=== PATIENT | female | born 1945 | race Caucasian/White ===

== ENCOUNTER → 2019-06-11 16:11 | Outpatient (CLI) | payer BC, SELFPAY ==
--- NOTE | ~2019-06-11 | CT_ITS ---
EXAMINATION: CT sinus wo con DATE: 06/11/2019 16:30 INDICATION: Frequent sinus infections, chronic sinusitis. TECHNIQUE: Computed tomography (CT) of the paranasal sinuses was performed without contrast. Iterativ e reconstruction technique was employed. Exam dose: 265.85 mGy-cm total exam DLP. COMPARISON: 05/27/2016 CT sinuses FINDINGS: Nearly midline nasal septum. Intralamellar cell of right middle nasal turbinate. The nasal turbinate are moderately prominent and relatively symmetric in size. The ostiomeatal units are patent bilaterally. Normal development and aeration of the paranasal sinuses and mastoid air cells. IMPRESSION: Interlamellar cell of right middle nasal turbinate; relatively symmetric prominence of t he nasal turbinates Patent paranasal sinuses, ostiomeatal units and mastoid air cells Reviewed, dictated and finalized at [facility]. Reviewed, dictated and finalized at location B. IMPRESSION: Interlamellar cell of right middle nasal turbinate; relatively sym metric prominence of the nasal turbinates Patent paranasal sinuses, ostiomeatal units and mastoid air cells
== END ==
PROVIDERS: PCP Internal Medicine; Visit Provider Internal Medicine
DX: J32.9 Chronic sinusitis, unspecified (principal)
CPT/HCPCS: 70486

== ENCOUNTER 2019-08-23 08:54 | Outpatient (CLI) | payer BC, SELFPAY ==
--- NOTE | 2019-08-23 08:56 | ECG_ITS ---
Measurements Intervals [place] Rate: 82 P: 40 CO: 199 QRS: 4 QRSD: 81 T: 60 QT: 366 QTc: 430 Interpretive Statements SINUS RHYTHM VENTRICULAR PREMATURE COMPLEXES LEFT VENTRICULAR HYPERTROPHY WITH ST-T CHANGE BASELINE ARTIFACT- I, II, III, AVR, AVL, AVF BORDERLINE ECG Electronically Signed On 08-23-2019 9:27:47 CDT by Priyank Evangelista D.O.
[2019-08-23 09:36] LABS: Blood Urea Nitrogen 12 mg/dL (7-17); Calcium 9.5 mg/dL (8.4-10.2); Carbon Dioxide 28 mmol/L (22-30); Chloride 102 mmol/L (98-107); Estimated Glomerular Filt Rate > 60; Glucose 106 mg/dL (65-105); Potassium 3.7 mmol/L (3.4-5.0); Sodium 138 mmol/L (137-145)
== END 2019-08-23 08:55 | disposition home or self-care (01) ==
PROVIDERS: Anesthesiology; PCP Internal Medicine; Visit Provider Orthopaedic Surgery
DX: I10 Essential (primary) hypertension (principal); E11.9 Type 2 diabetes mellitus without complications; R94.31 Abnormal electrocardiogram [ECG] [EKG]
CPT/HCPCS: 36415; 80048; 93005

== ENCOUNTER 2019-08-30 | Outpatient (CLI) | payer BC, SELFPAY ==
[2019-08-30 17:25] LABS: SARS-CoV-2 RNA PCR Negative
== END 2019-08-30 00:01 | disposition home or self-care (01) ==
LOC: ANHCOVIDDT 00:01
PROVIDERS: PCP Internal Medicine; Visit Provider Orthopaedic Surgery
DX: Z01.812 Encounter for preprocedural laboratory examination (principal); Z20.828 Contact with and (suspected) exposure to other viral communicable diseases
CPT/HCPCS: 87635; C9803; U0003

== ENCOUNTER 2019-09-02 00:34 | Day surgery (SDC) | payer BC, SELFPAY ==
[2019-06-13 15:07] VITALS: BMI 32.5
[2019-08-21 15:48] VITALS: BMI 30.5
--- NOTE | 2019-08-21 15:56 | PC.NURSE ---
PT STATES NO CHANGE IN HEALTH HX SINCE LAST INTERVIEW ON 06/13/19
[2019-09-02] VITALS (7 sets, daily range): BP systolic 131–151; BP diastolic 63–78; PULSE 76–90; RESP 14–20; TEMP 36.3–36.5; O2SAT 96–99
--- NOTE | 2019-09-02 08:11 | WPDANESEPPF ---
Anes - Initial Pre Proc Eval Procedure: Operation Date: 09/02/19 11:00 Proposed Procedures p Right Carpal Tunnel Release - Ulisses Morales MD Date/Time: 09/02/19 08:11 Surgeon: Ulisses Morales MD Pre Op Diagnosis: Right Carpal Tunnel Syndrome Patient Data Age: 74 Gender: F Height: 1.63 m Weight: 80.75 kg Allergies Allergy/AdvReac Type Severity Reaction Status Date / Time clarithromycin Allergy Unknown Itching Verified 08/21/19 14:50 iodine Allergy Unknown THROAT Verified 08/21/19 15:46 SWELLING,FACIAL SWELLING levofloxacin Allergy Unknown Nausea and Verified 08/21/19 14:50 Vomiting Macrolide Antibiotics Allergy Unknown Nausea and Verified 08/21/19 14:50 Vomiting phenazopyridine Allergy Unknown Rash Verified 08/21/19 14:50 Contrast Media Allergy Unknown FACIAL Uncoded 08/21/19 14:50 SWELLING, DIFFICULTY BREATHING Home Medications Medication Instructions Recorded Confirmed Type Opal-D 24 Hour 1 tablet PO QAM PRN 01/15/19 08/21/19 History Janumet 1 tablet PO DAILY 01/15/19 08/21/19 History Multi For Her 1 tab-cap PO DAILY 01/15/19 08/21/19 History acetaminophen [Tylenol] 500 mg PO ONCE PRN 01/15/19 08/21/19 History amlodipine [Norvasc] 5 mg PO DAILY 01/15/19 08/21/19 History carvedilol [Coreg] 12.5 mg PO BID 01/15/19 08/21/19 History famotidine 20 mg PO DAILY 01/15/19 08/21/19 History furosemide [Lasix] 20 mg PO DAILY 01/15/19 08/21/19 History glucosamine-chondroitin [Osteo 1 tablet PO DAILY 01/15/19 08/21/19 History Bi-Flex] levothyroxine 100 mcg PO DAILY 01/15/19 08/21/19 History niacin 500 mg PO DAILY 01/15/19 08/21/19 History omega 1-eda-zlb-fish oil [Fish Oil] 2 cap PO DAILY 01/15/19 08/21/19 History potassium chloride [K-Tab] 20 meq PO DAILY 01/15/19 08/21/19 History rosuvastatin [Crestor] 2.5 mg PO QMWF 01/15/19 08/21/19 History vitamin B complex 1 cap PO DAILY 01/15/19 08/21/19 History vitamin E 400 unit PO DAILY 01/15/19 08/21/19 History acyclovir 200 mg capsule 200 mg PO DAILY #120 cap 03/06/19 08/21/19 Rx olmesartan 40 mg tablet 40 mg PO DAILY #90 tablet 03/19/19 08/21/19 Rx fexofenadine 60 mg-pseudoephedrine 1 tablet PO Q12H PRN 05/22/19 08/21/19 History ER 120 mg tablet,ext.release,12 hr cefdinir 300 mg capsule 300 mg PO Q12H #20 cap 06/12/19 08/21/19 Rx cholestyramine-aspartame 4 gram 4 g PO DAILY #231 gm 06/26/19 08/21/19 Rx oral powder Patient hx anesthesia problems: none Family hx anesthesia problems: none PMFSH Social History Social History Social History: Mrs. Hagen is and lives in [place], [place]. Her primary care provider is Dr. Alexander Christian. 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 She designates her son, King, as her surrogate decision maker and she wishes to be a full code. She has 5 children. She is a lifelong nonsmoker and denies alcohol and drug abuse. Smoking status: Never smoker Alcohol intake: never Additional living arrangements comments: Son Beatriz Hopper Final PreProcedure Day of Procedure 09/02/19 08:11 Patient weight: obese Heart: regular rate and rhythm Lungs: clear to auscultation and normal air movement Airway: Mallampati scale class II Neurological: alert and oriented Last oral intake: >/= 8 hours ASA classification: III Emergent: no Anesthetic plan: proceed Anesthesia type and monitoring: general GIVS and LMA Informed Consent: The patient's anesthetic plan and its attendant risks and benefits were discussed with the patient/family/POA. Questions were solicited and answers provided to the satisfaction of the patient/family/POA.
[2019-09-02] MEDS: LACTATED RINGERS 1,000 ML 30 ML IV CONT (09:30)
[2019-09-02 09:40] LABS: Glucose Point of Care 103 (65-105)
--- NOTE | 2019-09-02 10:25 | WPDHPUPDATE1 ---
History and Physical Update Update Date/Time: 09/02/19 10:25 History and Physical has been reviewed, including an updated exam of the patient. There are NO changes in the patient's condition. Risks, benefits, and alternatives have been discussed and questions answered. Patient agrees to proceed with procedure.
[2019-09-02] MEDS: ceFAZolin 2 GM/D5W 50 ML 2 GM/50 ML BAG IVPB (11:06)
[2019-09-02] MEDS: BUPIVACAINE/EPINEPHRINE 0.25% 50 ML VIAL INFILTRATE (11:38)
--- NOTE | 2019-09-02 11:55 | P.OP_ITS ---
Procedure Note - Detailed Date of procedure: 09/02/19 Pre-op diagnosis: Right Carpal Tunnel Syndrome Post-op diagnosis: same Procedure performed: Right carpal tunnel release Description of procedure: The patient was identified and proper side identified. After being taken to the operating room and transferred to the OR table, a nonsterile tourniquet was placed high on the right upper extremity, which was prepped and draped in the usual sterile fashion. After IV sedation was administered, the subcutaneous tissue in the area of the incision was infiltrated with several cc of 0.25% Marcaine and epinephrine solution. The extremity was exsanguinated and tourniquet inflated to 250 mmHg remaining up for approximately four minutes. A longitudinal incision was over the ulnar aspect of the transverse carpal ligament. Subcutaneous tissue was bluntly dissected down to the ligament, which was identified and then transected longitudinally in line with the incision releasing the contents of the carpal canal. The tourniquet was released. Hemostasis was carried out with bipolar electrocautery. The median nerve had appropriate blush with reperfusion. The wound was irrigated with sterile saline solution. Skin edges were reapproximat ed with four 0 nylon suture and a sterile dressing was applied. A well-padded volar wrist splint was fashioned with the wrist in a neutral position. Anesthesia: GLMA Surgeon: Ulisses Morales MD Estimated blood loss (mL): 2 Tourniquet time (min): 4 Drains: No Packing: No Pathology: none sent Complications: No immediate complications Condition: stable Disposition: PACU
[2019-09-02 12:43] LABS: Glucose Point of Care 82 (65-105)
== END 2019-09-02 13:30 | disposition home or self-care (01) ==
PROVIDERS: PCP Internal Medicine; Visit Provider Orthopaedic Surgery
PROC: (CPT 64721; principal; 2019-09-02 11:00)
DX: G56.01 Carpal tunnel syndrome, right upper limb (principal); E66.9 Obesity, unspecified; Z68.31 Body mass index [BMI] 31.0-31.9, adult; I10 Essential (primary) hypertension; E11.9 Type 2 diabetes mellitus without complications; K21.9 Gastro-esophageal reflux disease without esophagitis; E78.5 Hyperlipidemia, unspecified; E03.9 Hypothyroidism, unspecified
CPT/HCPCS: 64721; J0690; J1100; J2405; J2704; J3010; J7120

== ENCOUNTER → 2019-11-26 15:09 | Outpatient (REF) | payer BC, SELFPAY | LOC: ANHLAB 15:09 | PROVIDERS: PCP Internal Medicine; Visit Provider Nurse Practitioner | DX: C43.72 Malignant melanoma of left lower limb, including hip (principal) | CPT/HCPCS: 88305; 88342 ==

== ENCOUNTER 2019-12-10 01:51 | Outpatient (CLI) | payer BC, SELFPAY ==
[2019-12-10 17:02] LABS: SARS-CoV-2 RNA PCR Negative
== END 2019-12-10 01:52 | disposition home or self-care (01) ==
LOC: ANHCOVIDDT 01:51
PROVIDERS: PCP Internal Medicine; Visit Provider Surgery Plastic and Reconstructive Surgery
DX: Z01.812 Encounter for preprocedural laboratory examination (principal); Z20.828 Contact with and (suspected) exposure to other viral communicable diseases
CPT/HCPCS: 87635; C9803; U0003

== ENCOUNTER 2019-12-11 08:47 | Outpatient (CLI) | payer BC, SELFPAY ==
[2019-12-11 09:13] LABS: Anion Gap 10 mmol/L (8-16); Blood Urea Nitrogen 14 mg/dL (7-17); Calcium 9.4 mg/dL (8.4-10.2); Carbon Dioxide 26 mmol/L (22-30); Chloride 102 mmol/L (98-107); Estimated Glomerular Filt Rate > 60; Glucose 113 mg/dL (65-105); Potassium 3.8 mmol/L (3.4-5.0); Sodium 138 mmol/L (137-145)
== END 2019-12-11 08:48 | disposition home or self-care (01) ==
PROVIDERS: Anesthesiology; PCP Internal Medicine; Visit Provider Surgery Plastic and Reconstructive Surgery
DX: E11.9 Type 2 diabetes mellitus without complications (principal)
CPT/HCPCS: 36415; 80048

== ENCOUNTER 2019-12-12 00:26 | Day surgery (SDC) | payer BC, SELFPAY ==
[2019-12-10 12:52] VITALS: BMI 31.1
--- NOTE | ~2019-12-12 | NM_ITS ---
EXAMINATION: NM sentinel node w imaging DATE: 12/12/2019 08:13 INDICATION: Left foot melanoma. TECHNIQUE: 0.516 mCi Tc-99m filtered sulfur colloid was injected in two aliquots along the dorsal and plantar margins of the lesion which is seen at the medial side of the left foot. Scintigraphic image s of the pelvis and and upper thighs was obtained for marking. IMPRESSION: 1. Left foot sentinel lymph node radiopharmaceutical injection with uptake at a single sentinel node at the left groin. Reviewed, dictated and finalized at location A.
[2019-12-12] MEDS: LACTATED RINGERS 1,000 ML 30 ML IV CONT (06:34)
[2019-12-12 06:40] VITALS: BP 121/68; PULSE 85; RESP 18; TEMP 36.8; O2SAT 98
[2019-12-12 06:56] LABS: Glucose Point of Care 126 (65-105)
--- NOTE | 2019-12-12 07:35 | SUR.PREOP ---
PT TO NUCLEAR MEDICINE PER WHEELCHAIR.
--- NOTE | 2019-12-12 07:54 | WPDHPUPDATE1 ---
History and Physical Update Update Date/Time: 12/12/19 07:54 History and Physical has been reviewed, including an updated exam of the patient. There are NO changes in the patient's condition. Risks, benefits, and alternatives have been discussed and questions answered. Patient agrees to proceed with procedure.
--- NOTE | 2019-12-12 08:02 | WPDANESEPPF ---
Anes - Initial Pre Proc Eval Procedure: Operation Date: 12/12/19 08:30 Proposed Procedures p Wide Excision Melanoma Left Medial Foot With Split Thickness Skin Graft - Neymar Lopez MD s Vivian Lymph Node Biopsy - Neymar Lopez MD Date/Time: 12/12/19 08:02 Surgeon: Neymar Lopez MD Pre Op Diagnosis: Melanoma Left Foot Patient Data Age: 74 Gender: F Height: 5 ft 4 in Weight: 82 kg Allergies Allergy/AdvReac Type Severity Reaction Status Date / Time Iodinated Contrast Media Allergy Severe Swelling Verified 12/12/19 07:57 clarithromycin Allergy Unknown Itching Verified 12/10/19 12:32 iodine Allergy Unknown THROAT Verified 12/10/19 12:32 SWELLING,FACIAL SWELLING levofloxacin Allergy Unknown Nausea and Verified 12/10/19 12:32 Vomiting Macrolide Antibiotics Allergy Unknown Nausea and Verified 12/10/19 12:32 Vomiting phenazopyridine Allergy Unknown Rash Verified 12/10/19 12:32 Contrast Media Allergy Unknown FACIAL Uncoded 12/10/19 12:32 SWELLING, DIFFICULTY BREATHING Home Medications Medication Instructions Recorded Confirmed Type Multi For Her 1 tab-cap PO DAILY 01/15/19 12/12/19 History acetaminophen [Tylenol] 500 mg PO ONCE PRN 01/15/19 12/12/19 History famotidine 20 mg PO DAILY 01/15/19 12/12/19 History furosemide [Lasix] 20 mg PO DAILY 01/15/19 12/12/19 History glucosamine-chondroitin [Osteo 1 tablet PO DAILY 01/15/19 12/12/19 History Bi-Flex] levothyroxine 100 mcg PO DAILY 01/15/19 12/12/19 History niacin 500 mg PO DAILY 01/15/19 12/12/19 History omega 5-dvj-xlh-fish oil [Fish Oil] 2 cap PO DAILY 01/15/19 12/12/19 History vitamin B complex 1 cap PO DAILY 01/15/19 12/12/19 History vitamin E 400 unit PO DAILY 01/15/19 12/12/19 History acyclovir 200 mg capsule 200 mg PO DAILY #120 cap 03/06/19 12/12/19 Rx olmesartan 40 mg tablet 40 mg PO DAILY #90 tablet 03/19/19 12/12/19 Rx fexofenadine 60 mg-pseudoephedrine 1 tablet PO Q12H PRN 05/22/19 12/12/19 History ER 120 mg tablet,ext.release,12 hr sitagliptin 50 mg-metformin 500 mg 1 tablet PO DAILY #90 tablet 09/13/19 12/12/19 Rx tablet rosuvastatin 5 mg tablet 5 mg PO DAILY #90 tablet 10/17/19 12/12/19 Rx amlodipine 10 mg tablet 5 mg PO DAILY #45 tablet 10/25/19 12/12/19 Rx cholestyramine-aspartame 4 gram 4 g PO DAILY #360 gm 11/11/19 12/12/19 Rx oral powder carvedilol 12.5 mg tablet 12.5 mg PO BID #180 tablet 12/02/19 12/12/19 Rx potassium chloride 20 mEq 20 meq PO DAILY #90 tablet 12/03/19 12/12/19 Rx tablet,extended release Laboratory Tests 12/12/19 06:53 POC Capillary Glucose 126 mg/dl H mg/dl (65-105) Patient hx anesthesia problems: none Family hx anesthesia problems: none PMFSH Past Medical History Medical History Aftercare following surgery (02/05/19) Benign essential hypertension Bilateral hearing loss BMI 31.0-31.9,adult Chronic sinus complaints Colon cancer screening CTS (carpal tunnel syndrome) DM type 2 (diabetes mellitus, type 2) 05/16/19 a1c 5.5 DVT (deep venous thrombosis) In her 20s. Attributed to oral contraceptive use. Elevated homocysteine Encounter for routine adult health examination without abnormal findings Ganglion cyst left wrist volar GERD (gastroesophageal reflux disease) GERD (gastroesophageal reflux disease) History of diverticulitis History of shingles Hyperlipidemia Hypertension Hypothyroidism Insulin resistance Hemoglobin A1c was 5.7 in June 2018. 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 Skin lesion Vitamin D deficiency Surgical History Surgical History History of appendectomy History of tonsillectomy History of total replacement of left shoulder joint Presence of left artificial shoulder joint (02/05/19) Right carpal tunnel syndrome Surgery [facility]
--- NOTE | 2019-12-12 08:08 | PM.PROC ---
Procedure Note - Detailed Date of procedure: 12/12/19 Pre-op diagnosis: Melanoma Left Foot Post-op diagnosis: same Procedure performed: 1. Wide excision melanoma left medial foot 7cm 2. Left inguinal sentinal lymph node excisional biopsy 3. FTSG left medial foot (harvested left thigh) 7x7cm (49cm2) Description of procedure: Risks, benefits, alternatives were discussed again today in extensive detail. I want her to be realistic about the risks involved as well as expectations. Made sure answered all of her questions to her satisfaction and consent obtained. She was marked in the preoperative holding area with her verification. She had been to radiology with radionucleotide injection. The sentinel node was identified left inguinal. She was taken to the operating room placed supine on the operating room table. Anesthesia was provided by anesthesiology and prepped and draped standard sterile fashion. 1% lidocaine with epinephrine was used anesthetize locally at the planned sentinel node site. I used the counter to identify the location. a 15 blade used to make an incision over this. I continued dissection until the node was identified and this was removed. The node was sent to pathology. The background was less than 1%. No evidence of neurovascular injury. I closed with 2-0 Vicryl followed by 3-0 Monocryl in a running subcuticular 4-0 Monocryl with tissue glue. I marked out greater than 2 cm margins around the melanoma site. 1% lidocaine and 0.25% Marcaine with epinephrine was used anesthetize locally. A 15 blade used to make an incision and dissection was continued down and elevated just above the fascia. This was sent to pathology. On the left side I marked out the graft site. 1% lidocaine and 0.25% Marcaine with epinephrine was used anesthetize locally. Chapo dermatome was used to harvest the graft at 12 1 thousands of an inch. I placed an occlusive dressing at the site. The skin graft was meshed at a 1.5-1 ratio. It was stapled into place over the left medial foot. Xeroform and a tie-over bolster using wet cotton were used. Dressings were placed. Awoke and taken the PACU without difficulty. All instrument sponge counts were correct at the end the case. Anesthesia: GLMA Surgeon: Neymar Lopez MD Estimated blood loss (mL): 5 Drains: No Packing: Yes Pathology: yes Complications: No immediate complications Condition: stable Disposition: PACU
[2019-12-12] MEDS: ceFAZolin 2 GM/D5W 50 ML 2 GM/50 ML BAG IVPB (08:21)
[2019-12-12 09:50] VITALS: BP 140/77; PULSE 91; RESP 14; TEMP 36.6; O2SAT 100
[2019-12-12 09:55] LABS: Glucose Point of Care 114 (65-105)
[2019-12-12 10:07] VITALS: BP 130/74; PULSE 82; RESP 12; O2SAT 97
[2019-12-12 10:20] VITALS: BP 109/92; PULSE 83; RESP 12; O2SAT 100
[2019-12-12 10:40] VITALS: BP 148/73; PULSE 86
[2019-12-12 11:10] VITALS: BP 138/70; PULSE 80
--- NOTE | 2019-12-12 11:15 | SUR.OPER ---
EBL:20cc
== END 2019-12-12 11:38 | disposition home or self-care (01) ==
PROVIDERS: PCP Internal Medicine; Visit Provider Surgery Plastic and Reconstructive Surgery
PROC: (CPT 11626; principal; 2019-12-12 08:30)
PROC: (CPT 11626; 2019-12-12 08:30)
DX: C43.72 Malignant melanoma of left lower limb, including hip (principal); I10 Essential (primary) hypertension; E78.5 Hyperlipidemia, unspecified; K21.9 Gastro-esophageal reflux disease without esophagitis; E11.9 Type 2 diabetes mellitus without complications; Z86.718 Personal history of other venous thrombosis and embolism; E03.9 Hypothyroidism, unspecified; E55.9 Vitamin D deficiency, unspecified; Z79.84 Long term (current) use of oral hypoglycemic drugs; E66.9 Obesity, unspecified; Z68.31 Body mass index [BMI] 31.0-31.9, adult
CPT/HCPCS: 11626; 15240; 15241 ×2; 38531; 78195; 88305; 88307; 88342; A9520; J0690; J1100; J2250; J2405; J2704; J3010; J7120

== ENCOUNTER 2020-01-01 11:25 | Outpatient (CLI) | payer BC, SELFPAY ==
[2020-01-01 11:38] LABS: Basophils Percent Auto 0.3 % (0.2-1.2); Eosinophils Absolute Auto 0.2 K/mm3 (0-0.3); Eosinophils Percent Auto 1.7 % (0-4.4); Hematocrit 36.3 % (37.0-47.0); Immature Granulocyte Absolute 0.02 K/mm3 (0.00-0.031); Immature Granulocyte Percent A 0.2 % (0-0.5); Lymphocytes Absolute Auto 2.26 K/mm3 (0.9-3.2); Lymphocytes Percent Auto 25.4 % (18.3-44.2); Mean Corpuscular HGB Conc 33.1 g/dl (32-36); Mean Corpuscular Hemoglobin 31.7 pg (26-34); Mean Corpuscular Volume 95.8 fl (80-100); Mean Platelet Volume 10.1 fl (7.4-10.4); Monocytes Percent Auto 11.5 % (2.6-8.5); Neutrophils Absolute Auto 5.4 K/mm3 (1.3-6.7); Neutrophils Percent Auto 60.9 % (45.5-73.1); Platelet Count Result 225 k/mm3 (150-375); Red Blood Count 3.79 M/mm3 (4.2-5.4); Red Cell Distribution Width 12.5 % (11.5-14.5); White Blood Count 8.9 K/mm3 (4.5-10.0)
[2020-01-01 13:46] LABS: Alanine Aminotransferase 16 U/L (4-35); Albumin Level 4.4 g/dL (3.5-5.1); Alkaline Phosphatase 75 U/L (38-126); Anion Gap 10 mmol/L (8-16); Aspartate Amino Transferase 23 U/L (14-36); Bilirubin,Total 0.4 mg/dL (0.2-1.3); Blood Urea Nitrogen 13 mg/dL (7-17); Calcium 9.9 mg/dL (8.4-10.2); Carbon Dioxide 28 mmol/L (22-30); Chloride 103 mmol/L (98-107); Estimated Glomerular Filt Rate > 60; Glucose 104 mg/dL (65-105); Lactate Dehydrogenase 359 U/L (313-618); Potassium 4.1 mmol/L (3.4-5.0); Sodium 141 mmol/L (137-145)
== END 2020-01-01 11:26 | disposition home or self-care (01) ==
LOC: ANHLAB 11:26
PROVIDERS: PCP Internal Medicine; Visit Provider Internal Medicine Hematology & Oncology
DX: C43.71 Malignant melanoma of right lower limb, including hip (principal)
CPT/HCPCS: 36415; 80053; 83615; 85025

== ENCOUNTER 2020-03-16 07:47 | Outpatient (RCR) | payer BC, SELFPAY ==
[2020-01-06 13:23] VITALS: BMI 31.7
--- NOTE | 2020-01-27 12:55 | P.PN_ITS ---
Progress Note: A&P Assessment and Plan (1) Melanoma of foot: Code(s): C43.70 - Malignant melanoma of unspecified lower limb, including hip Status: Acute Assessment and Plan: Left medial foot is doing well. Continues to make progress. Continue dressing changes. Follow-up. Overall doing well. She continues to make improvement. She would like to continue with dressing changes. Wound care will treat with silver nitrate today. I will see her back and check her progress. Call with any questions or concerns. (2) Vitamin D deficiency: Code(s): E55.9 - Vitamin D deficiency, unspecified Status: Acute (3) Benign essential hypertension: Code(s): I10 - Essential (primary) hypertension Status: Acute (4) Insulin resistance: Code(s): E88.81 - Metabolic syndrome Status: Chronic Review of Systems Review of Systems: Narrative: Edema left lower extremity. Mild. No calf tenderness. All systems reviewed & are unremarkable except as noted in HPI and below Exam Narrative: Exam Narrative: Mild left lower extremity edema. No calf tenderness. Negative Homans. Her left medial ankle is healing with some hypergranulation tissue. Continues to decrease in size. No signs of infection. No hematoma. No seroma. Const: General: comfortable, no acute distress, alert and awake; No acute distress Orientation/consciousness: oriented to person HENMT: Head: normal to inspection Ears: external ears normal General nose exam: Normal external nose present Face and sinus: normal facial exam Eyes: General: appearance normal, both eyes and all related structures Periorbital: periorbital findings normal Eyelids: eyelids normal Conjunctivae: conjunctivae normal Neck: Neck: normal visual inspection Chest: Chest palpation & inspection: normal inspection of the chest Resp: Effort & Inspection: normal respiratory effort and able to speak in complete sentences GI: Inspection: normal to inspection Neuro: General: oriented to person Psych: Appearance: grossly normal Mental Status: mental status grossly normal Objective Data Meds/Results Medications: Active Medications Generic Name Dose Route Start Last Admin Trade Name Freq PRN Reason Stop Dose Admin Mupirocin 1 applic 01/20/20 12:05 Mupirocin 2% Oint 22 Gm Tube TOPICAL 04/21/20 23:59 PRN PRN Wound Care Silver Nitrate 1 applic 01/06/20 11:51 Silvergel TOPICAL 04/07/20 23:55 PRN PRN Wound Care Wound Care/Dressing Products 1 patch 01/06/20 11:52 Mepilex Transfer Drsg 6x8 TOPICAL 04/07/20 23:55 PRN PRN Wound Care Subjective Date/time seen: 01/27/20 12:55 She is here today in follow-up of left medial foot melanoma excision and split- thickness skin graft. She states her lymph node biopsy site is healing well. She believes she had a little bit of infection that was treated with antibiotics by her primary care. Subsequently resolved in doing great. Left medial feels better. No fevers or chills. No nausea vomiting. No shortness of breath. No chest pain. She has been treated with silver nitrate tissue.
== END 2020-04-05 23:59 | disposition home or self-care (01) ==
LOC: ANHWOC 07:47
PROVIDERS: PCP Internal Medicine; Visit Provider Surgery Plastic and Reconstructive Surgery
DX: T86.821 Skin graft (allograft) (autograft) failure (principal)
CPT/HCPCS: 99212; A9270; G0463

== ENCOUNTER → 2020-03-17 13:36 | Outpatient (REF) | payer BC, SELFPAY | LOC: ANHLAB 13:36 | PROVIDERS: PCP Internal Medicine; Visit Provider Nurse Practitioner | DX: C44.319 Basal cell carcinoma of skin of other parts of face (principal) | CPT/HCPCS: 88305 ==

== ENCOUNTER 2020-03-31 08:04 | Outpatient (CLI) | payer BC, SELFPAY ==
[2020-03-31 08:28] LABS: Basophils Absolute Auto 0.1 K/mm3 (0.0-0.1); Basophils Percent Auto 0.8 % (0.2-1.2); Eosinophils Absolute Auto 0.2 K/mm3 (0-0.3); Eosinophils Percent Auto 3.5 % (0-4.4); Hematocrit 37.4 % (37.0-47.0); Hemoglobin 12.2 g/dL (12.0-15.0); Immature Granulocyte Absolute 0.02 K/mm3 (0.00-0.031); Immature Granulocyte Percent A 0.3 % (0-0.5); Lymphocytes Percent Auto 27.7 % (18.3-44.2); Mean Corpuscular HGB Conc 32.6 g/dl (32-36); Mean Corpuscular Hemoglobin 31.1 pg (26-34); Mean Corpuscular Volume 95.4 fl (80-100); Mean Platelet Volume 9.9 fl (7.4-10.4); Monocytes Absolute Auto 0.8 K/mm3 (0.1-0.6); Monocytes Percent Auto 12.2 % (2.6-8.5); Neutrophils Absolute Auto 3.6 K/mm3 (1.3-6.7); Neutrophils Percent Auto 55.5 % (45.5-73.1); Platelet Count Result 197 k/mm3 (150-375); Red Blood Count 3.92 M/mm3 (4.2-5.4); Red Cell Distribution Width 12.8 % (11.5-14.5); White Blood Count 6.5 K/mm3 (4.5-10.0)
[2020-03-31 13:12] LABS: Alanine Aminotransferase 19 U/L (4-35); Albumin Level 4.3 g/dL (3.5-5.1); Alkaline Phosphatase 73 U/L (38-126); Anion Gap 11 mmol/L (8-16); Aspartate Amino Transferase 26 U/L (14-36); Bilirubin,Total 0.3 mg/dL (0.2-1.3); Blood Urea Nitrogen 16 mg/dL (7-17); Calcium 9.5 mg/dL (8.4-10.2); Carbon Dioxide 27 mmol/L (22-30); Chloride 101 mmol/L (98-107); Estimated Glomerular Filt Rate > 60; Glucose 111 mg/dL (65-105); Lactate Dehydrogenase 359 U/L (313-618); Sodium 139 mmol/L (137-145)
== END 2020-03-31 08:05 | disposition home or self-care (01) ==
LOC: ANHLAB 08:05
PROVIDERS: PCP Internal Medicine; Visit Provider Internal Medicine Hematology & Oncology
DX: C43.71 Malignant melanoma of right lower limb, including hip (principal)
CPT/HCPCS: 36415; 80053; 83615; 85025

== ENCOUNTER → 2020-03-31 16:49 | Outpatient (CLI) | payer BC, SELFPAY ==
--- NOTE | ~2020-03-31 | MM_ITS ---
EXAMINATION: MM screening caleb BI w lilian HISTORY: Screening TECHNIQUE: Craniocaudal and mediolateral oblique 3-D tomosynthesis images were obtained and synthetic 2-D images were generated. CAD analysis was submitted and interpreted. COMPARISON: Comparison to multiple prior studies sequentially, with oldest reviewed study dated 07/01. BREAST PARENCHYMAL COMPOSITION: There are scattered areas of fibroglandular density. FINDINGS: There is no evidence of suspicious mass, calcification, or architectural distortion to sugg est malignancy in either breast. There has been no suspicious interval change. IMPRESSION: 1. No mammographic evidence of malignancy. 2. Recommend routine screening mammography in one year. BI-RADS Category 1: Negative Reviewed, dictated and finalized at location A. CLERK
== END ==
PROVIDERS: PCP Internal Medicine; Visit Provider Internal Medicine
DX: Z12.31 Encounter for screening mammogram for malignant neoplasm of breast (principal)
CPT/HCPCS: 77063; 77067

== ENCOUNTER 2020-05-04 12:16 | Outpatient (RCR) | payer BC, SELFPAY | END 2020-07-08 14:39 | disposition home or self-care (01) | LOC: ANHWOC 12:16 | PROVIDERS: PCP Internal Medicine; Visit Provider Surgery Plastic and Reconstructive Surgery | DX: Z48.817 Encounter for surgical aftercare following surgery on the skin and subcutaneous tissue (principal); Z94.5 Skin transplant status | CPT/HCPCS: 99212; G0463 ==

== ENCOUNTER → 2020-05-18 09:38 | Outpatient (REF) | payer BC, SELFPAY | LOC: ANHLAB 09:38 | PROVIDERS: PCP Internal Medicine; Visit Provider Nurse Practitioner | DX: C44.319 Basal cell carcinoma of skin of other parts of face (principal) | CPT/HCPCS: 88305; 88331 ==

== ENCOUNTER → 2020-06-19 14:39 | Outpatient (CLI) | payer BC, SELFPAY ==
--- NOTE | ~2020-06-19 | XR_ITS ---
XR chest 2V DATE: 06/19/2020 14:53 INDICATION: Malignant melanoma of skin TECHNIQUE: PA and lateral views COMPARISON: 06/10/2014 AP and lateral chest FINDINGS: Normal heart size. Aortic calcification and mild unfolding. No hilar or mediastinal enlarge ment. No pulmonary infiltrate or consolidation, pleural effusion or pulmonary vascular congestion or pneumo thorax. Left glenohumeral joint replacement. Chronic widening of the right acromioclavicular joint. Diffuse idiopathic skeletal hyperostosis of the thoracic spine. Diffuse osteopenia. IMPRESSION: No active cardiac pulmonary disease Aortic atherosclerosis No significant change since 06/10/2014 Reviewed, dictated and finalized at location A.
== END ==
PROVIDERS: PCP Internal Medicine; Visit Provider Internal Medicine
DX: Z85.820 Personal history of malignant melanoma of skin (principal); I70.0 Atherosclerosis of aorta
CPT/HCPCS: 71046

== ENCOUNTER 2020-09-28 08:22 | Outpatient (CLI) | payer BC, SELFPAY ==
[2020-09-28 08:42] LABS: Basophils Percent Auto 0.5 % (0.2-1.2); Eosinophils Absolute Auto 0.1 K/mm3 (0-0.3); Eosinophils Percent Auto 2.1 % (0-4.4); Hematocrit 38.2 % (37.0-47.0); Hemoglobin 12.3 g/dL (12.0-15.0); Immature Granulocyte Absolute 0.02 K/mm3 (0.00-0.031); Immature Granulocyte Percent A 0.3 % (0-0.5); Lymphocytes Absolute Auto 1.63 K/mm3 (0.9-3.2); Lymphocytes Percent Auto 27.9 % (18.3-44.2); Mean Corpuscular HGB Conc 32.2 g/dl (32-36); Mean Corpuscular Volume 96.2 fl (80-100); Mean Platelet Volume 9.6 fl (7.4-10.4); Monocytes Absolute Auto 0.7 K/mm3 (0.1-0.6); Monocytes Percent Auto 11.1 % (2.6-8.5); Neutrophils Absolute Auto 3.4 K/mm3 (1.3-6.7); Neutrophils Percent Auto 58.1 % (45.5-73.1); Platelet Count Result 187 k/mm3 (150-375); Red Blood Count 3.97 M/mm3 (4.2-5.4); Red Cell Distribution Width 12.3 % (11.5-14.5); White Blood Count 5.9 K/mm3 (4.5-10.0)
[2020-09-28 10:33] LABS: Alanine Aminotransferase 18 U/L (4-35); Albumin Level 4.5 g/dL (3.5-5.1); Alkaline Phosphatase 66 U/L (38-126); Anion Gap 9 mmol/L (8-16); Aspartate Amino Transferase 26 U/L (14-36); Bilirubin,Total 0.3 mg/dL (0.2-1.3); Blood Urea Nitrogen 14 mg/dL (7-17); Calcium 9.9 mg/dL (8.4-10.2); Carbon Dioxide 28 mmol/L (22-30); Chloride 104 mmol/L (98-107); Estimated Glomerular Filt Rate > 60; Glucose 120 mg/dL (65-105); Lactate Dehydrogenase 338 U/L (313-618); Potassium 4.3 mmol/L (3.4-5.0); Sodium 141 mmol/L (137-145)
== END 2020-09-28 08:23 | disposition home or self-care (01) ==
PROVIDERS: PCP Internal Medicine; Visit Provider Internal Medicine Hematology & Oncology
DX: C43.71 Malignant melanoma of right lower limb, including hip (principal)
CPT/HCPCS: 36415; 80053; 83615; 85025

== ENCOUNTER 2020-10-22 01:02 | Day surgery (SDC) | payer BC, SELFPAY ==
[2020-10-19 16:58] VITALS: BMI 31.4
--- NOTE | 2020-10-22 07:17 | WPDHPUPDATE1 ---
History and Physical Update Update Date/Time: 10/22/20 07:17 History and Physical has been reviewed, including an updated exam of the patient. There are NO changes in the patient's condition. Risks, benefits, and alternatives have been discussed and questions answered. Patient agrees to proceed with procedure.
--- NOTE | 2020-10-22 08:06 | ECG_ITS ---
Measurements Intervals [place] Rate: 85 P: 28 AL: 212 QRS: -1 QRSD: 75 T: 59 QT: 356 QTc: 424 Interpretive Statements SINUS RHYTHM WITH FIRST DEGREE AV BLOCK LEFT VENTRICULAR HYPERTROPHY WITH ST-T CHANGE ABNORMAL ECG Electronically Signed On 10-22-2020 11:28:59 CDT by Priyank Evangelista D.O.
[2020-10-22 08:47] VITALS: BP 172/83; PULSE 98; RESP 20; TEMP 36.8; O2SAT 100
[2020-10-22 09:50] LABS: Glucose Point of Care 106 mg/dl (65-105)
[2020-10-22] MEDS: LACTATED RINGERS 1,000 ML 30 ML IV CONT (10:05)
--- NOTE | 2020-10-22 10:09 | WPDANESEPPF ---
Anes - Initial Pre Proc Eval Procedure: Operation Date: 10/22/20 10:30 Proposed Procedures p Left Carpal Tunnel Release - Brendan Zamora MD Date/Time: 10/22/20 10:09 Surgeon: Brendan Zamora MD Pre Op Diagnosis: left carpal tunnel syndrome Patient Data Age: 75 Gender: F Height: 1.63 m Weight: 83.01 kg Allergies Allergy/AdvReac Type Severity Reaction Status Date / Time Iodinated Contrast Media Allergy Severe THROAT/FACIAL Verified 10/22/20 09:23 SWELLING iodine Allergy Severe THROAT/FACIAL Verified 10/22/20 09:23 SWELLING clarithromycin AdvReac Mild Itching Verified 10/22/20 09:23 levofloxacin AdvReac Mild Nausea and Verified 10/22/20 09:23 Vomiting Macrolide Antibiotics AdvReac Mild Nausea and Verified 10/22/20 09:23 Vomiting phenazopyridine AdvReac Mild Rash Verified 10/22/20 09:23 Contrast Media Allergy Unknown FACIAL/THROAT Uncoded 10/22/20 09:23 SWELLING, DIFFICULTY BREATHING Home Medications Medication Instructions Recorded Confirmed Type Multi For Her 1 tab-cap PO DAILY 01/15/19 10/22/20 History acetaminophen [Tylenol] 500 mg PO ONCE PRN 01/15/19 10/22/20 History glucosamine-chondroitin [Osteo 1 tablet PO DAILY 01/15/19 10/22/20 History Bi-Flex] niacin 500 mg PO DAILY 01/15/19 10/22/20 History omega 5-pxz-wkq-fish oil [Fish Oil] 2 cap PO DAILY 01/15/19 10/22/20 History vitamin B complex 1 cap PO DAILY 01/15/19 10/22/20 History vitamin E 400 unit PO DAILY 01/15/19 10/22/20 History fexofenadine 60 mg-pseudoephedrine 1 tablet PO Q12H PRN 05/22/19 10/22/20 History ER 120 mg tablet,ext.release,12 hr potassium chloride 20 mEq 20 meq PO DAILY #90 tablet 12/03/19 10/22/20 Rx tablet,extended release famotidine 40 mg tablet 40 mg PO DAILY #90 tablet 12/23/19 10/22/20 Rx levothyroxine 100 mcg tablet 100 mcg PO DAILY #90 tablet 09/28/20 07/22/21 Rx furosemide 40 mg tablet 20 mg PO DAILY #90 tablet 06/08/20 10/22/20 Rx carvedilol 12.5 mg PO BID 10/19/20 10/22/20 History cholestyramine-aspartame 4 ea PO DAILY 10/19/20 10/22/20 History [Prevalite] olmesartan 40 mg PO DAILY 10/19/20 10/22/20 History rosuvastatin 5 mg PO DAILY 10/19/20 10/22/20 History sitagliptin-metformin [Janumet] 1 tablet PO DAILY 10/19/20 10/22/20 History amlodipine 5 mg PO DAILY 10/22/20 10/22/20 History Laboratory Tests 10/22/20 09:46 POC Capillary Glucose 106 mg/dl H mg/dl (65-105) Patient hx anesthesia problems: none Family hx anesthesia problems: none PMFSH Past Medical History Medical History Aftercare following surgery (02/05/19) Benign essential hypertension Bilateral hearing loss BMI 31.0-31.9,adult Chronic sinus complaints Colon cancer screening CTS (carpal tunnel syndrome) DM type 2 (diabetes mellitus, type 2) 05/16/19 a1c 5.5 DVT (deep venous thrombosis) In her 20s. Attributed to oral contraceptive use. Elevated homocysteine Encounter for routine adult health examination without abnormal findings Ganglion cyst left wrist volar GERD (gastroesophageal reflux disease) GERD (gastroesophageal reflux disease) History of diverticulitis History of shingles Hyperlipidemia Hypertension Hypothyroidism Insulin resistance Hemoglobin A1c was 5.7 in June 2018. 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 Skin lesion Vitamin D deficiency Surgical History Surgical History History of appendectomy History of knee joint replacement History of tonsillectomy History of total replacement of left shoulder joint Presence of left artificial shoulder joint (02/05/19) Right carpal tunnel syndrome Surgery September 2019 Status post cholecystectomy Status post reverse arthroplasty of left shoulder Status post right knee replacement Family History Fam
[2020-10-22] MEDS: KETOROLAC 15 MG/ML VIAL (*BKC) IV PUSH (10:12)
[2020-10-22] MEDS: ceFAZolin 2 GM/D5W 50 ML 2 GM/50 ML BAG IVPB (10:29)
[2020-10-22] MEDS: BUPIVACAINE/EPINEPHRINE 0.5% 30 ML VIAL INFILTRATE (11:04)
[2020-10-22 11:17] VITALS: BP 157/74; PULSE 84; RESP 14; O2SAT 99
[2020-10-22 11:29] LABS: Glucose Point of Care 92 mg/dl (65-105)
[2020-10-22 11:40] VITALS: BP 141/69; PULSE 75; RESP 20
--- NOTE | 2020-10-22 12:02 | W.PM.PROC2 ---
Procedure Note - Detailed Date of Procedure 10/22/20 Pre-op Diagnosis left carpal tunnel syndrome Post-op Diagnosis same Procedure Performed Left Carpal tunnel release Surgeon Brendan Zamora MD Counter Intelligence Technician Moni Salazar PA-C Anesthesia general and local Description of Procedure Operative details. After sedation was administer, the hand was prepped and draped in the usual sterile fashion. The proposed incision was marked using typical anatomic landmarks. 3ML 0.5% Marcaine with epinephrine was injected along the incision line and at the distal forearm. The limb was exsanguinated and the tourniquet inflated to 250 millimeters of mercury. A longitudinal incision was taken sharply. Dissection was brought down to the transverse carpal ligament. Under direct vision the ligament was incised sharply. The proximal release was carried out with dissection scissors. The contents of the carpal canal were protected with a Canby elevator. The transverse carpal ligament was confirmed to be widely patent. Estimated Blood Loss 1 Tourniquet Time 4 Pathology none sent Complications No immediate complications Condition stable Disposition PACU
[2020-10-22 12:10] VITALS: BP 149/75; PULSE 78; RESP 20
== END 2020-10-22 12:15 | disposition home or self-care (01) ==
PROVIDERS: PCP Internal Medicine; Visit Provider Orthopaedic Surgery
PROC: (CPT 64721; principal; 2020-10-22 10:30)
DX: G56.02 Carpal tunnel syndrome, left upper limb (principal); I10 Essential (primary) hypertension; E11.9 Type 2 diabetes mellitus without complications; K21.9 Gastro-esophageal reflux disease without esophagitis; E03.9 Hypothyroidism, unspecified; E78.2 Mixed hyperlipidemia; M19.90 Unspecified osteoarthritis, unspecified site; E55.9 Vitamin D deficiency, unspecified; R76.11 Nonspecific reaction to tuberculin skin test without active tuberculosis; Z79.84 Long term (current) use of oral hypoglycemic drugs; E66.9 Obesity, unspecified; Z68.31 Body mass index [BMI] 31.0-31.9, adult
CPT/HCPCS: 64721; 82948; 93005; J0690; J1100; J1885; J2250; J2405; J2704; J3010; J7120

== ENCOUNTER → 2020-12-08 13:18 | Outpatient (REF) | payer BC, MEDICARE, SELFPAY | LOC: ANHLAB 13:18 | PROVIDERS: PCP Internal Medicine; Visit Provider Nurse Practitioner | DX: L98.9 Disorder of the skin and subcutaneous tissue, unspecified (principal) | CPT/HCPCS: 88305 ==

== ENCOUNTER → 2020-12-24 12:38 | Outpatient (REF) | payer BC, MEDICARE, SELFPAY | LOC: ANHLAB 12:38 | PROVIDERS: PCP Internal Medicine; Visit Provider Nurse Practitioner | DX: C44.621 Squamous cell carcinoma of skin of unspecified upper limb, including shoulder (principal) | CPT/HCPCS: 88305 ==

== ENCOUNTER → 2021-04-29 14:16 | Outpatient (CLI) | payer MEDICARE, SELFPAY ==
--- NOTE | ~2021-04-29 | MM_ITS ---
EXAMINATION: MM screening [facility] BI w lilian HISTORY: Screening mammogram TECHNIQUE: Craniocaudal and mediolateral oblique 3-D tomosynthesis images were obtained and synthetic 2-D images were generated. CAD analysis was submitted and interpreted. COMPARISON: 03/31/2020, 08/23/2018, 08/07/2017 BREAST PARENCHYMAL COMPOSITION: There are scattered areas of fibroglandular density. FINDINGS: Scattered benign-appearing calcifications are present. There is no evidence of suspicious m ass, calcification, or architectural distortion to suggest malignancy in either breast. There has bee n no suspicious interval change. IMPRESSION: 1. No mammographic evidence of malignancy. 2. Recommend routine screening mammography in one year. BI-RADS Category 2: Benign finding(s). Reviewed, dictated and finalized at location A. SORTER
== END ==
PROVIDERS: PCP Internal Medicine; Visit Provider Internal Medicine
DX: Z12.31 Encounter for screening mammogram for malignant neoplasm of breast (principal)
CPT/HCPCS: 77063; 77067

== ENCOUNTER → 2022-01-18 13:08 | Outpatient (CLI) | payer MEDICARE, SELFPAY ==
--- NOTE | ~2022-01-18 | CT_ITS ---
EXAMINATION: CT chest abdomen pelvis wo con DATE: 01/18/2022 13:49 INDICATION: Localized swelling, mass and lump, left lower limb. Left groin mass. Malignant melanoma. TECHNIQUE: Computed tomography (CT) of the chest, abdomen, and pelvis was performed without intraveno us contrast. Automated exposure control and iterative reconstruction technique were employed. The dos e-length product was 852.48 mGy-cm. COMPARISON: CT abdomen and pelvis 09/07/12 FINDINGS: CHEST CT: There is no pneumonia or pleural effusion. The heart size is normal. There are coronary artery calcif ications. No pericardial effusion. Calcified mediastinal lymph nodes are consistent with old granulom atous disease. There are bridging endplate osteophytes at multiple levels in the spine, consistent wi th diffuse idiopathic skeletal hyperostosis (DISH). There is a left shoulder arthroplasty. ABDOMEN/PELVIS CT: The liver and spleen are normal. There are changes of cholecystectomy. The pancreas, adrenal glands, and right kidney are normal. There is a 4.6 cm cyst in left kidney. There is no urolithiasis. There i s diverticulosis of the colon without evidence of diverticulitis. There are no dilated loops of bowel . The appendix is normal. There are no pathologically enlarged lymph nodes. There is no free intraper itoneal fluid. There is severe lower lumbar spondylosis. IMPRESSION: 1. No left groin mass. No evidence of metastatic disease. Reviewed, dictated and finalized at location B.
== END ==
PROVIDERS: PCP Internal Medicine; Visit Provider Nurse Practitioner
DX: R22.42 Localized swelling, mass and lump, left lower limb (principal); Z85.820 Personal history of malignant melanoma of skin
CPT/HCPCS: 71250; 74176

== ENCOUNTER 2022-07-26 15:03 | Outpatient (CLI) | payer MEDICARE, SELFPAY ==
--- NOTE | ~2022-07-26 | XR_ITS ---
EXAM: XR hand RT min 3V, XR finger 1st RT min 2V DATE: 07/26/2022 15:26 HISTORY: M25.449 - Effusion, unspecified hand . COMPARISON: None available. FINDINGS: Lateral view and limited by overlapping fingers. Slightly decreased mineralization. No acut e fracture or dislocation. No lytic or blastic lesion. Scattered degenerative changes typical of oste oarthritis, involving the interphalangeal joints, first MCP joint, trapeziometacarpal joint, triscaph e joint, radiocarpal joint, and DRUJ. Ulnar positive variance. Subchondral sclerosis and cyst formati on between the distal ulna and lunate. Medial subluxations of the second and third PIP joints. Radial subluxation of the interphalangeal joint of the thumb No erosion or periosteal change. Soft tissues within normal limits. IMPRESSION: Moderate-severe polyarticular osteoarthritis. Ulnar impaction syndrome. Reviewed, dictated and finalized at location K. IMPRESSION: Moderate-severe polyarticular osteoarthritis. Ulnar impaction syndr ome.
== END 2022-07-26 15:04 | disposition home or self-care (01) ==
PROVIDERS: PCP Internal Medicine; Visit Provider Internal Medicine
DX: M19.041 Primary osteoarthritis, right hand (principal)
CPT/HCPCS: 73130; 73140

== ENCOUNTER 2022-08-22 15:58 | Outpatient (CLI) | payer MEDICARE, SELFPAY ==
--- NOTE | ~2022-08-22 | XR_ITS ---
EXAMINATION: XR scanogram DATE: 08/22/2022 17:11 INDICATION: Limb length discrepancy. TECHNIQUE: An anteroposterior view of the pelvis and lower extremities standing was obtained. COMPARISON: None. FINDINGS: There is a total right knee arthroplasty in near-anatomic alignment. Right femoral head sta nds 14 mm higher than the left. There is mild osteoarthritis of the hips. There is moderate left knee osteoarthritis. There is severe lumbar spondylosis. There are surgical clips in right abdomen. IMPRESSION: 1. Right femoral head stands 14 mm higher than the left. 2. Total right knee arthroplasty in near-anatomic alignment. 3. Polyarticular osteoarthritis. Reviewed, dictated and finalized at location A.
== END 2022-08-22 15:59 | disposition home or self-care (01) ==
PROVIDERS: PCP Internal Medicine; Visit Provider Podiatrist Foot & Ankle Surgery
DX: M79.89 Other specified soft tissue disorders (principal); M19.90 Unspecified osteoarthritis, unspecified site
CPT/HCPCS: 77073

== ENCOUNTER → 2022-09-22 14:02 | Outpatient (CLI) | payer MEDICARE, SELFPAY ==
--- NOTE | ~2022-09-22 | MM_ITS ---
EXAMINATION: MM screening [facility] BI w lilian HISTORY: Screening mammogram TECHNIQUE: Craniocaudal and mediolateral oblique 3-D tomosynthesis images were obtained and synthetic 2-D images were generated. CAD analysis was submitted and interpreted. COMPARISON: 04/29/2021, 03/31/2020, 08/23/2018 bilateral screening mammogram examinations BREAST PARENCHYMAL COMPOSITION: There are scattered areas of fibroglandular density. FINDINGS: There is no evidence of suspicious mass, calcification, or architectural distortion to sugg est malignancy in either breast. There has been no suspicious interval change. IMPRESSION: 1. No mammographic evidence of malignancy. 2. Recommend routine screening mammography in one year. BI-RADS Category 1: Negative Reviewed, dictated and finalized at location A.
== END ==
PROVIDERS: PCP Internal Medicine; Visit Provider Internal Medicine
DX: Z12.31 Encounter for screening mammogram for malignant neoplasm of breast (principal)
CPT/HCPCS: 77063; 77067

== ENCOUNTER 2022-11-18 09:57 | Outpatient (CLI) | payer MEDICARE, SELFPAY ==
--- NOTE | ~2022-11-18 | XR_ITS ---
EXAMINATION: XR barium swallow DATE: 11/18/2022 10:50 INDICATION: Epigastric pain and reflux TECHNIQUE: The patient drank thick barium, gas-producing crystals, and thin barium. Fluoroscopic spot radiographs of the hypopharynx and esophagus were obtained. Fluoroscopy exposure time was 2.1 minut es. COMPARISON: CT chest, abdomen and pelvis dated 01/18/2022 FINDINGS: The pharynx is symmetric and without evidence of mass lesion or mucosal irregularity. The e sophagus is normal without mass or stricture. Mild esophageal dysmotility with wave with weakening of the primary and secondary peristaltic waves in the mid esophagus with breakup of the contrast bolus and some pooling of contrast in the mid esophagus on swallow study performed in the prone position. T here is a very small sliding-type hiatal hernia with the gastroesophageal junction approximately 3 cm above level of the diaphragm. There is a small diverticulum arising from the gastric fundus. There w as gastroesophageal reflux with provocative maneuvers with reflux of a small amount of contrast into the mid to distal esophagus. IMPRESSION: 1. Mild esophageal dysmotility likely related to presbyesophagus. 2. Very small sliding-type hiatal hernia with small amount of gastroesophageal reflux with provocativ e maneuvers. Reviewed, dictated and finalized at location A. IMPRESSION: 1. Mild esophageal dysmotility likely related to presbyesophagus. 2. Very small sliding-type hiatal hernia with small amount of gastroesophageal reflux with provocative maneuvers.
== END 2022-11-18 09:58 | disposition home or self-care (01) ==
PROVIDERS: PCP Internal Medicine; Visit Provider Internal Medicine
DX: R10.13 Epigastric pain (principal); R14.0 Abdominal distension (gaseous); K44.9 Diaphragmatic hernia without obstruction or gangrene
CPT/HCPCS: 74220

== ENCOUNTER 2023-01-17 13:06 | Outpatient (NON) | payer MEDICARE, SELFPAY | END 2023-01-17 13:07 | disposition home or self-care (01) | LOC: ANHLAB 01-18 13:08 | PROVIDERS: PCP Internal Medicine; Visit Provider Nurse Practitioner | DX: D48.5 Neoplasm of uncertain behavior of skin (principal); L57.0 Actinic keratosis | CPT/HCPCS: 88305 ==

== ENCOUNTER 2023-01-25 12:08 | Outpatient (CLI) | payer MEDICARE, SELFPAY ==
--- NOTE | ~2023-01-25 | XR_ITS ---
[id number] 01/25/2023 12:25 Indication: Left knee pain Procedure: Left knee pain Comparison: No prior studies for comparison. Findings: There is moderate tricompartment osteoarthritis of the left knee. No fracture, subluxation or dislocation. No joint effusion. Impression: 1: Moderate osteoarthritis of the left knee. Reviewed, dictated and finalized at location B. Impression: 1: Moderate osteoarthritis of the left knee.
== END 2023-01-25 12:09 | disposition home or self-care (01) ==
PROVIDERS: PCP Internal Medicine; Visit Provider Internal Medicine
DX: M17.12 Unilateral primary osteoarthritis, left knee (principal)
CPT/HCPCS: 73560

== ENCOUNTER 2023-05-18 11:04 | Outpatient (CLI) | payer MEDICARE, SELFPAY ==
--- NOTE | ~2023-05-18 | CT_ITS ---
EXAMINATION: CT LE LT wo con DATE: 05/18/2023 11:34 INDICATION: Left knee osteoarthritis. Preoperative planning. TECHNIQUE: Computed tomography (CT) of the left lower limb was performed without intravenous contrast . Automated exposure control and iterative reconstruction technique were employed. The dose-length pr oduct was 1564.65 mGy-cm. COMPARISON: Left knee radiographs 03/01/2023 FINDINGS: Bone alignment is normal. No fracture. There is moderate left hip osteoarthritis. Left knee demonstrates severe osteoarthritis of medial and patellofemoral compartments and moderate osteoarthr itis of lateral compartment. There is a small knee joint effusion with loose body. There is mild ankl e joint osteoarthritis. IMPRESSION: 1. Severe left knee osteoarthritis. 2. Small left knee joint effusion with loose body. 3. Moderate left hip osteoarthritis. Reviewed, dictated and finalized at location A. ENTICE PAINTER HAND
--- NOTE | 2023-05-18 11:30 | ECG_ITS ---
Measurements Intervals [place] Rate: 82 P: 50 [place]: 220 QRS: 5 QRSD: 78 T: 53 QT: 363 QTc: 426 Interpretive Statements SINUS RHYTHM WITH FIRST DEGREE AV BLOCK MODERATE VOLTAGE CRITERIA FOR LVH, CONSIDER NORMAL VARIANT [MEETS CRITERIA IN ONE OF: R(aVL), S(V1), R(V5), R(V5/V6)+S(V1)] POSSIBLE SEPTAL MYOCARDIAL INFARCTION , PROBABLY OLD [30 ms Q WAVE IN V1/V2] COMPARED TO ECG 10/22/2020 09:49:46 NO SIGNIFICANT CHANGES Electronically Signed On 05-18-2023 12:42:37 CORE DRILL OPERATOR HELPER by Олег Watts M.D.
== END 2023-05-18 11:05 | disposition home or self-care (01) ==
PROVIDERS: PCP Internal Medicine; Visit Provider Orthopaedic Surgery
DX: M17.12 Unilateral primary osteoarthritis, left knee (principal); M16.12 Unilateral primary osteoarthritis, left hip; M25.461 Effusion, right knee; I44.0 Atrioventricular block, first degree
CPT/HCPCS: 73700; 93005

== ENCOUNTER 2023-07-19 12:00 | Outpatient (CLI) | payer MEDICARE, SELFPAY ==
[2023-07-19 12:59] LABS: Basophils Percent Auto 0.6 % (0.2-1.2); Eosinophils Percent Auto 0.6 % (0-4.4); Hematocrit 37.3 % (37.0-47.0); Hemoglobin 12.2 g/dL (12.0-15.0); Immature Granulocyte Absolute 0.01 K/mm3 (0.00-0.031); Immature Granulocyte Percent A 0.2 % (0-0.5); Lymphocytes Absolute Auto 2.49 K/mm3 (0.9-3.2); Lymphocytes Percent Auto 39.5 % (18.3-44.2); Mean Corpuscular HGB Conc 32.7 g/dl (32-36); Mean Corpuscular Hemoglobin 31.8 pg (26-34); Mean Corpuscular Volume 97.1 fl (80-100); Mean Platelet Volume 10.1 fl (7.4-10.4); Monocytes Absolute Auto 0.7 K/mm3 (0.1-0.6); Monocytes Percent Auto 10.9 % (2.6-8.5); Neutrophils Percent Auto 48.2 % (45.5-73.1); Platelet Count Result 177 k/mm3 (150-375); Red Blood Count 3.84 M/mm3 (4.2-5.4); Red Cell Distribution Width 12.8 % (11.5-14.5); White Blood Count 6.3 K/mm3 (4.5-10.0)
[2023-07-19 14:11] LABS: MRSA (PCR) NOT DETECTED (NOT DETECTE)
== END 2023-07-19 12:01 | disposition home or self-care (01) ==
LOC: ANHSURGERY 12:03
PROVIDERS: PCP Internal Medicine; Visit Provider Orthopaedic Surgery
DX: M17.12 Unilateral primary osteoarthritis, left knee (principal); Z01.818 Encounter for other preprocedural examination
CPT/HCPCS: 36415; 85025; 87641

== ENCOUNTER 2023-08-10 00:10 | Day surgery (SDC) | payer MEDICARE, SELFPAY ==
--- NOTE | 2023-07-19 12:05 | PC.NURSE ---
Report to the Outpatient Waiting Room, entrance under the green pavilion located off [facility], at time __1030 on date __08/10/23 . Planned Procedure Time: __1230 . Time changes happen often and if your time is changed the preop area will call you the afternoon before. - You and your visitor will be asked to self-screen and do not enter if you have any COVID symptoms. - A mask is optional within the hospital at this time. Patients may have clear liquids (water, carbonated beverages, clear teas, apple juice) until 3 hours prior to surgery( 9:30 am) with a maximum of 20 ounces. - No food from midnight until time of surgery Take the following medications with a SIP of water the morning of surgery: __AMLODIPINE,CARVEDILOL,LEVOTHYROXINE DO NOT STOP ANY OF YOUR OTHER PRESCRIPTION MEDICATIONS PRIOR TO SURGERY ?EXCEPT THE FOLLOWING Medications to discontinue per physician _PT STATES _HOLD ALL VITAMINS AND SUPPLEMENTS _7 DAYS PRE OP.LAST DOSE 08/02/23 Please no make-up, nail omani, hairspray, perfume, deodorant, or body powder the day of surgery. No jewelry (including any body piercings) or valuables the day of surgery, leave them at home. Please take a shower or bath the night before, or the morning of, surgery with an antibacterial soap. Wear comfortable, loose fitting clothing. Children are encouraged to wear pajamas. - Jewelry must be removed prior to entering the operating room. Rings and piercings that are not removed may be cut off. - The hospital will not accept responsibility for valuables. - Please leave all valuables, including medications, at home the day of surgery. If you are going home after surgery, a licensed hazmat cdl a driver must drive you home. - NO public transportation without another adult if you receive anesthesia. - We recommend that an adult stay with you for 24 hours following discharge. - We also recommend that you do not drive, make important decision, drink alcoholic beverages, or take any drugs that were not prescribed by your health care provider for at least 24 hours after your discharge time. Follow any additional instructions given to you from your surgeon. If you or anyone in your household have experienced Covid symptoms in the past week, please notify your surgeon or the nurse liaison at the phone number below for possible testing. VERBAL AND WRITTEN instructions given to _PATIENT AND DAUGHTER RAUL and asked if any additional questions and then verbalized understanding. Patient advised to call surgeon office or pre surgery nurse liaison [phone] if any additional questions.
[2023-07-19 12:42] VITALS: BP 145/82; PULSE 80; RESP 18; TEMP 36.7; O2SAT 97; BMI 29.2
[2023-08-10] VITALS (11 sets, daily range): BP systolic 118–193; BP diastolic 51–87; PULSE 70–86; RESP 13–17; TEMP 36.2–36.8; O2SAT 95–100
--- NOTE | ~2023-08-10 | XR_ITS ---
EXAMINATION: [id number]_[id number] DATE: 08/10/2023 14:56 INDICATION: Postoperative evaluation following left total knee arthroplasty. TECHNIQUE: Anteroposterior and lateral views of the left knee were obtained. COMPARISON: None. FINDINGS: Left total knee arthroplasty with patellar resurfacing appears well seated and in near anatomic align ment. No fractures identified. Expected postoperative subcutaneous and intra-articular gas. IMPRESSION: 1. Left total knee arthroplasty, negative for postoperative purposes. Reviewed, dictated and finalized at location A.
--- NOTE | 2023-08-10 09:49 | WPDHPUPDATE1 ---
History and Physical Update Update Date/Time: 08/10/23 09:49 History and Physical has been reviewed, including an updated exam of the patient. There are NO changes in the patient's condition. Risks, benefits, and alternatives have been discussed and questions answered. Patient agrees to proceed with procedure.
[2023-08-10] MEDS: TRANEXAMIC ACID 1,000MG/ISO100 1,000 MG/100 ML BAG 200 MG IVPB (11:30)
[2023-08-10] MEDS: LACTATED RINGERS 1,000 ML 30 ML IV CONT ×2 (11:30→14:41)
--- NOTE | 2023-08-10 11:41 | WPDANESEPPF ---
Anes - Initial Pre Proc Eval Procedure: Operation Date: 08/10/23 12:30 Proposed Procedures p Left Custom Total Knee Arthroplasty - Brendan Zamora MD Date/Time: 08/10/23 11:41 Surgeon: Brendan Zamora MD Pre Op Diagnosis: primary oa Left knee Patient Data Age: 78 Gender: F Height: 1.63 m Weight: 77.3 kg Last Vital Signs Temp 36.7 C 07/19/23 12:42 Pulse 80 07/19/23 12:42 Resp 18 07/19/23 12:42 BP 145/82 H 07/19/23 12:42 Pulse Ox 97 07/19/23 12:42 O2 Del Method Room Air 07/19/23 12:42 Allergies Allergy/AdvReac Type Severity Reaction Status Date / Time Iodinated Contrast Media Allergy Severe THROAT/FACIAL Verified 08/07/23 13:52 SWELLING iodine Allergy Severe THROAT/FACIAL Verified 08/07/23 13:52 SWELLING clarithromycin AdvReac Mild Itching Verified 08/07/23 13:52 levofloxacin AdvReac Mild Nausea and Verified 08/07/23 13:52 Vomiting Macrolide Antibiotics AdvReac Mild Nausea and Verified 08/07/23 13:52 Vomiting phenazopyridine AdvReac Mild Rash Verified 08/07/23 13:52 Contrast Media Allergy Unknown FACIAL/THROAT Uncoded 08/07/23 13:52 SWELLING, DIFFICULTY BREATHING Home Medications Medication Instructions Recorded Confirmed Type glucosamine-chondroitin 250 mg-200 1 tablet PO DAILY 01/15/19 08/07/23 History mg tablet (Osteo Bi-Flex) mgckqpjpa-wls-jmld fumarate 18 1 tab-cap PO DAILY 01/15/19 08/07/23 History mg-FA 600 mcg-vit K 40 mcg capsule (Multi For Her) omega 7-zzu-nhd-fish oil 1,000 mg 2 cap PO DAILY 01/15/19 08/07/23 History (120 mg-180 mg) capsule (Fish Oil) vitamin E 268 mg (400 unit) capsule 400 unit PO DAILY 01/15/19 08/07/23 History fexofenadine 60 mg-pseudoephedrine 1 tablet PO Q12H PRN Nasal 05/22/19 08/07/23 History ER 120 mg tablet,ext.release,12 hr Congestion (Opal-D 12 Hour) rosuvastatin 5 mg tablet 2.5 mg PO DAILY 10/19/20 08/07/23 History amlodipine 10 mg tablet 5 mg PO DAILY 10/22/20 08/07/23 History fluticasone propionate 50 1 spray intranasal BID #16 mL 02/08/21 08/07/23 Rx mcg/actuation nasal spray,suspension furosemide 40 mg tablet See Rx Instructions .Route 04/13/23 08/07/23 Rx .COMPLEX #90 tabs famotidine 40 mg tablet See Rx Instructions .Route 05/16/23 08/07/23 Rx .COMPLEX #90 tabs levothyroxine 137 mcg tablet See Rx Instructions .Route 05/26/23 08/07/23 Rx .COMPLEX #90 tabs cholestyramine-aspartame 4 gram See Rx Instructions .Route 06/02/23 08/07/23 Rx oral powder (Cholestyramine Light) .COMPLEX #239.4 grams olmesartan 40 mg tablet See Rx Instructions .Route 06/02/23 08/07/23 Rx .COMPLEX #90 tabs sitagliptin phosphate 50 See Rx Instructions .Route 07/07/23 08/07/23 Rx mg-metformin 500 mg tablet .COMPLEX #90 tabs (Janumet) potassium chloride 20 mEq See Rx Instructions .Route 07/12/23 08/07/23 Rx tablet,extended release .COMPLEX #90 tabs acetaminophen 650 mg 650 mg PO Q12H PRN Pain 07/19/23 08/07/23 History tablet,extended release valacyclovir 500 mg tablet 500 mg PO Q12H #60 tabs 07/19/23 08/07/23 Rx carvedilol 25 mg tablet 25 mg PO Q12H #180 tabs 08/07/23 08/07/23 Rx Patient hx anesthesia problems: none Family hx anesthesia problems: none Results Review: All pre-operative results and documents have been reviewed as part of the pre-operative evaluation. [facility] Past Medical History Medical History Abdominal bloating Acquired eversion of left foot Aftercare following surgery (02/05/19) Benign essential hypertension Benign mole Bilateral hearing loss BMI 29.0-29.9,adult BMI 31.0-31.9,adult Chronic sinus complaints Colon cancer screening CTS (carpal tunnel syndrome) Cutaneous horn Diarrhea DM type 2 (diabetes mellitus, type 2) 05/16/19 a1c 5.5 DVT (deep venous thrombosis) In her 20s. Attributed to oral contraceptive use. Dyspepsia Elevated homocysteine Encounter for Medicare annual well
[2023-08-10] MEDS: ACETAMINOPHEN 500 MG TABLET 1000 MG PO (11:50)
[2023-08-10 11:58] LABS: Glucose Point of Care 87 mg/dl (65-105)
[2023-08-10 12:10] LABS: Urine Cotinine NEGATIVE
--- NOTE | 2023-08-10 12:12 | WPDANESPNB ---
Anes - Peripheral Nerve Block Date/Time: 08/10/23 12:12 I have discussed with the patient/family/POA the placement of a peripheral nerve block for post-operative pain management, including associated risks, benefits, complications, and side effects. Alternative methods of post-operative analgesia were detailed. Questions were solicited and answers provided to the satisfaction of the patient/family/POA. Time-Out: A pre-procedural Time-Out was completed immediately before starting the procedure and confirmed: Patient Identification, Site, Procedure, Patient Position and the Availability of Requisite Equipment. Clinical Indications: Acute post-operative pain management requested by the operative surgeon. Nerve Block Insertion Note Anes-nerve block: adductor canal left Patient position: supine Skin prep: chlorhexidine Needle: 22 gauge, stimulating, insulated echogenic needle. Needle length: 80 mm Technique: ultrasound Injectate: bupivacaine 0.5% with epi 5 mcg/ml (30cc) Observations: tolerated well Complications: none Procedure start time:: 1207 Procedure end time:: 1212
[2023-08-10] MEDS: ceFAZolin 2 GM/D5W 50 ML 2 GM/50 ML BAG IVPB ×2 (12:41→21:04)
[2023-08-10] MEDS: SODIUM CHLORIDE 0.9% IV 37.7 ML, MORPHINE SULFATE INJ (*CRX) 2 MG, ROPivacaine HCL 1% 2... INFILTRATE (13:40)
--- NOTE | 2023-08-10 14:34 | P.OP_ITS ---
Procedure Note - Detailed Date of Procedure 08/10/23 Pre-op Diagnosis primary oa Left knee Post-op Diagnosis Same Procedure Performed Total knee arthroplasty, left Surgeon Brendan Zamora MD Heading Machine Operator Moni Grant PA-C Anesthesia General and Regional (Subsartorial block.) Findings Custom total knee implant. Optimal fit. Standard resections. Minimal PCL release. Satisfactory bone quality. No additional releases. Description of Procedure Preoperative antibiotics were given. The limb was prepped and draped in the usual sterile fashion with a well-padded tourniquet high on the thigh. The limb was exsanguinated and the tourniquet inflated to 300 mmHg. A longitudinal incision was created just medial to the patella. A trivector approach to the knee was performed. Arthrotomy was taken down through the joint capsule. No significant releases were initially taken. The femur was exposed and the F1 jig was applied. The coring tool was used to remove the cartilage for the F2 jig to sit flush with the bone. The jig was pinned and the distal cut carefully taken. Caliper measurements confirmed appropriate bony resections according to the preoperative templated plan. The F4 cutting jig for the femur was applied, at the standard rotation. The AP and anterior chamfer cuts were taken. The F5 jig was applied and the posterior chamfer cuts were taken. The tibia was prepared using the T1 jig, after removing cartilage for the jig contact points. Proper alignment was checked with the alignment maddi. The tibia was cut using the T1u guide. Gap balancing was performed. Gap measurements were taken and the knee was trialed. Excellent alignment and soft tissue balancing was confirmed. The posterior cruciate ligament was recessed along the proximal tibia. The patella was cut for resurfacing. Three lug holes were drilled. Meniscal remnants were removed. The trial components were assembled. Excellent range of motion and proper soft tissue balancing were confirmed throughout the full range of motion. Patellar tracking was excellent. The knee was copiously irrigated periodically throughout the procedure. The real implants were cemented into position. Excess cement was carefully removed. The wound was closed in layers with interrupted #1 Vicryl suture, 2-0 strata fix suture, 0 strata fix suture, 2-0 strata fix suture. Steri-Strips placed on the skin with the knee flexed. Sterile bulky dressing applied. The patient was brought to the recovery room in stable condition. There were no complications. Physician machine assistant, Moni Grant PA-C, required for surgery; including patient positioning, draping, tissue retraction, maintaining instrument position, cement removal, wound closure, and dressing placement. Implants Conformis Custom total knee arthroplasty. Cemented. Cruciate retaining. 6A insert. 32 mm oval patella. Estimated Blood Loss 100 Tourniquet Time Total Tourniquet Time: 60 Drains No Complications No immediate complications Condition Stable Disposition PACU [facility] Billing Surgery - Charge Forward: Surgery Billing
[2023-08-10 14:47] LABS: Glucose Point of Care 102 mg/dl (65-105)
--- NOTE | 2023-08-10 16:33 | ADMGEN ---
This patient, Yee Hagen, was admitted to Medical Room 348-01. Patient/family oriented to hospital policies and general routines including ID bracelet, bed and alarms, visiting hours, pain management, procedures, bathroom and other care routines, personal items, smoking policy, room service/diet, and visiting hours. Information on how to activate the Rapid Response Team has been discussed. Patient/Family are encouraged to report perceived risks to care and to ask questions if they do not understand what they are told or what they should do.
[2023-08-10] MEDS: predniSONE 5 MG TABLET PO (17:15)
[2023-08-10] MEDS: SENNA/DOCUSATE SODIUM TABLET 2 TAB PO (17:15)
[2023-08-10] MEDS: ACETAMINOPHEN 325 MG TABLET 650 MG PO ×2 (17:15→23:25)
[2023-08-10] MEDS: SODIUM CHLORIDE 0.9% IV 1,000 ML 125 ML IV CONT (17:15)
--- NOTE | 2023-08-10 17:27 | PM.IMCN ---
Assessment and Plan Assessment and plan (1) Primary osteoarthritis of left knee: Code(s): M17.12 - Unilateral primary osteoarthritis, left knee Status: Acute Assessment and Plan: Patient underwent a total left knee arthroplasty on 08/10/2023 with Noah ELY. 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: without halfway use Qualified Code(s): E11.9 - Type 2 diabetes mellitus without complications Code(s): E11.9 - Type 2 diabetes mellitus without complications Status: Acute Assessment and Plan: - hypoglycemia protocol - POC blood glucose ACHS - home medication: Janumet 50-500 - correct regimen ordered: low dose TIDWM and HS - A1C 5.6% on 06/20/2023 (3) Benign essential hypertension: Code(s): I10 - Essential (primary) hypertension Status: Acute Assessment and Plan: - chronic, currently 178/87 - continue home medications: olmesartan, amlodipine, carvedilol - monitor (4) Hypothyroidism: Qualifiers: Hypothyroidism type: unspecified Qualified Code(s): E03.9 - Hypothyroidism, unspecified Code(s): E03.9 - Hypothyroidism, unspecified Status: Acute Assessment and Plan: - TSH 3.860 and free T4 1.21 on 06/20/2023 - continue home medication: Synthroid 137 mcg daily Plan Patient underwent a total left knee arthroplasty on 08/09. Trend labs. Pain management. PT/OT evaluation. Monitor blood pressure and glucose levels. Home medications reviewed. Diet: Diabetic GI Prophylaxis: Not currently indicated DVT Prophylaxis: SCDs and TEDs Lines: Peripheral Code Status: Full code HPI Date of Consult Consult date: 08/10/23 Requesting Physician: Brendan Zamora MD Primary Care Provider: Alexander Christian MD Consult Narrative Reason for consult: Medical Management Narrative: 78-year-old female presents here for surgical management of left knee pain with PMH of HTN, diabetes, DVT in her 20s due to BC, GERD, HLD, hypothyroidism, lymphedema (LLE), osteoarthritis, and vitamin-D deficiency. Patient reported that she had been having severe left knee pain that worsened with activities and had begun to limit her ADLs. Reported that it was difficult to walk more than 1 block and that her knee would give out on her on occasion. Reports pain was severe and excruciating. Pain was intermittent, occurring at night, and causing patient to limp. XR revealed severe degenerative changes in the knee, grade 4 space narrowing diffusely, and tricompartmental changes. Patient elected to proceed with surgical management due to progression of symptoms and inability to walk. Underwent a total left knee arthroplasty with Dr. Zamora today, 08/09. No postoperative N/V. Pain well controlled. per-op workup: no leukocytosis, no anemia, no significant electrolyte derangements, creatinine 0.59 and GFR 92. initial VS: 98.1? F, HR 80, RR 18, 145/82, and 97% on RA. Review of Systems Review of Systems: All systems reviewed & are unremarkable except as noted in HPI and below PMFSH Past Medical History Medical History Abdominal bloating Acquired eversion of left foot Aftercare following surgery (02/05/19) Benign essential hypertension Benign mole Bilateral hearing loss BMI 29.0-29.9,adult BMI 31.0-31.9,adult Chronic sinus complaints Colon cancer screening CTS (carpal tunnel syndrome) Cutaneous horn Diarrhea D
[2023-08-10] MEDS: valACYclovir HCL 500 MG TABLET PO (21:03)
[2023-08-10] MEDS: FAMOTIDINE 20 MG TABLET PO (21:03)
[2023-08-10] MEDS: carvediloL 25 MG TABLET PO (21:03)
[2023-08-10] MEDS: ASPIRIN 81 MG ENTERIC TABLET PO (21:03)
[2023-08-10 21:15] LABS: Glucose Point of Care 165 mg/dl (65-105)
[2023-08-11 05:03] LABS: Basophils Percent Auto 0.2 % (0.2-1.2); Hematocrit 30.6 % (37.0-47.0); Hemoglobin 9.9 g/dL (12.0-15.0); Immature Granulocyte Absolute 0.07 K/mm3 (0.00-0.031); Immature Granulocyte Percent A 0.6 % (0-0.5); Lymphocytes Absolute Auto 1.71 K/mm3 (0.9-3.2); Lymphocytes Percent Auto 15.7 % (18.3-44.2); Mean Corpuscular HGB Conc 32.4 g/dl (32-36); Mean Corpuscular Hemoglobin 31.7 pg (26-34); Mean Corpuscular Volume 98.1 fl (80-100); Mean Platelet Volume 9.6 fl (7.4-10.4); Monocytes Absolute Auto 1.4 K/mm3 (0.1-0.6); Monocytes Percent Auto 12.5 % (2.6-8.5); Neutrophils Absolute Auto 7.7 K/mm3 (1.3-6.7); Platelet Count Result 131 k/mm3 (150-375); Red Blood Count 3.12 M/mm3 (4.2-5.4); Red Cell Distribution Width 13.1 % (11.5-14.5); White Blood Count 10.9 K/mm3 (4.5-10.0)
[2023-08-11 05:14] LABS: Anion Gap 6 mmol/L (4-12); Blood Urea Nitrogen 15 mg/dL (7-17); Calcium 8.6 mg/dL (8.4-10.2); Carbon Dioxide 25 mmol/L (22-30); Chloride 107 mmol/L (98-107); Estimated CRCL calculation 54 ml/min; Estimated Glomerular Filt Rate > 60; Glucose 119 mg/dL (65-110); Potassium 3.9 mmol/L (3.4-5.0); Sodium 138 mmol/L (137-145)
[2023-08-11 05:19] VITALS: BP 138/60; PULSE 69; RESP 18; TEMP 36.6; O2SAT 99
[2023-08-11] MEDS: LEVOTHYROXINE SODIUM 112 MCG, LEVOTHYROXINE SODIUM 25 MCG 137 MCG PO (05:52)
[2023-08-11] MEDS: ACETAMINOPHEN 325 MG TABLET 650 MG PO ×2 (05:52→14:10)
[2023-08-11] MEDS: ceFAZolin 2 GM/D5W 50 ML 2 GM/50 ML BAG IVPB ×2 (05:53→13:04)
--- NOTE | 2023-08-11 09:02 | PM.DS ---
DS: Admitting Diagnosis Discharge Date 08/11/23 Admitting Diagnosis Knee arthritis. DS: Discharge Diagnosis Discharge Diagnosis (1) Status post total left knee replacement: Code(s): Z96.652 - Presence of left artificial knee joint Status: Acute Plan Postop day 1: Left total knee arthroplasty. Patient tolerated procedure well. No complications. Pain manageable with pain medication. No numbness or tingling. We had a lengthy discussion regarding postoperative wound care, limitations, expectations, and exercises. Patient shows good understanding. She has had initial physical therapy and is tolerating it well. DVT prophylaxis: 81 mg baby aspirin b.i.d. for 14 days. Pain medication: Percocet. Prednisone. Patient has followup appointment with Dr. Zamora in 3 weeks. DS: Summary Hospital Course Reason for hospitalization: Total knee arthroplasty Hospital Course: Patient tolerated procedure well. Has had initial PT/OT. Status at Discharge Functional status at discharge: uses cane/walker Overall status at discharge: patient is progressing back to baseline Time Spent with Patient Time attestation: Total time spent providing and/or coordinating discharge services: Exam Narrative: Elderly 78-year-old overweight female. Resting comfortably in chair. Alert and oriented x3. No acute distress. Wearing compression socks bilaterally. Dressing intact with small area of bloody drainage. Will change dressing today. Moderate swelling. No ecchymosis. No erythema. No hematoma. Range of motion limited due to pain. Calf nontender. Neurologic status intact. No varicosities. Distal pulses palpable. DS: Data Data Completed and Pending Labs on day of discharge: Labs from last 24 hours 08/11/23 08/10/23 08/10/23 04:52 20:06 14:45 WBC 10.9 H RBC 3.12 L Hgb 9.9 L Hct 30.6 L MCV 98.1 MCH 31.7 MCHC 32.4 RDW 13.1 Plt Count 131 L MPV 9.6 Immature Gran % (Auto) 0.6 H Neut % (Auto) 71.0 Lymph % (Auto) 15.7 L [place] % (Auto) 12.5 H Eos % (Auto) 0.0 Baso % (Auto) 0.2 Lymph # (Auto) 1.71 [place] # (Auto) 1.4 H Eos # (Auto) 0.0 Baso # (Auto) 0.0 Abs Immat Gran (auto) 0.07 H Absolute Neuts (auto) 7.7 H Absolute Nucleated RBC 0.000 Nucleated RBC % 0.0 Sodium 138 Potassium 3.9 Chloride 107 Carbon Dioxide 25 Anion Gap 6 BUN 15 Creatinine 0.70 Estim Creat Clear Calc 54 Estimated GFR > 60 Glucose 119 H POC Capillary Glucose 165 H 102 Calcium 8.6 Cotinine Blood Type Antibody Screen 08/10/23 08/10/23 08/10/23 12:19 11:43 11:32 WBC RBC Hgb Hct MCV MCH MCHC RDW Plt Count MPV Immature Gran % (Auto) Neut % (Auto) Lymph % (Auto) [place] % (Auto) Eos % (Auto) Baso % (Auto) Lymph # (Auto) [place] # (Auto) Eos # (Auto) Baso # (Auto) Abs Immat Gran (auto) Absolute Neuts (auto) Absolute Nucleated RBC Nucleated RBC % Sodium Potassium Chloride Carbon Dioxide Anion Gap BUN Creatinine Estim Creat Clear Calc Estimated GFR Glucose POC Capillary Glucose 87 Calcium Cotinine Negative Blood Type B Positive Antibody Screen Negative Discharge Plan Discharge Patient Disposition: Home, Self-Care Discharge Instructions: See green instruction sheets Stand Alone Forms: General Discharge Instructions Follow-up/Referrals: Moni Grant PA [Physician [facility]] - Discharge Medications: Continued fluticasone propionate 50 mcg/actuation spray,suspension 1 spray intranasal BID Qty: 16 0RF Rx Instructions: administer into each nostril carvedilol 25 mg tablet 25 mg PO Q12H Qty: 180 1RF Rx Instructions: must administer with a meal/food fexofenadine-pseudoephedrine [Opal-D 12 Hour] 60-120 mg tablet extended release
--- NOTE | 2023-08-11 09:47 | P.PNAN_ITS ---
Anes - Prog Note Post-Op Date/Time: 08/11/23 09:47 Cardiovascular status: normal Respiratory status: normal Airway patency: baseline Mental status: baseline Post-Op hydration status: normal Vital Signs: Last Vital Signs Temp 36.6 C 08/11/23 05:19 Pulse 69 08/11/23 05:19 Resp 18 08/11/23 05:19 BP 138/60 08/11/23 05:19 Pulse Ox 99 08/11/23 05:19 O2 Del Method Room Air 08/11/23 08:34 O2 Flow Rate 8 08/10/23 14:55 Pain Score (VAS): 06/10 I/O: Intake & Output 08/10/23 08/11/23 08/11/23 23:59 07:59 15:59 Intake Total 790 200 Balance 790 200 Laboratory Tests 08/11/23 04:52 08/11/23 04:52 08/10/23 08/10/23 08/10/23 11:32 11:43 12:19 WBC RBC Hgb Hct MCV MCH MCHC RDW Plt Count MPV Immature Gran % (Auto) Neut % (Auto) Lymph % (Auto) [place] % (Auto) Eos % (Auto) Baso % (Auto) Lymph # (Auto) [place] # (Auto) Eos # (Auto) Baso # (Auto) Abs Immat Gran (auto) Absolute Neuts (auto) Absolute Nucleated RBC Nucleated RBC % Sodium Potassium Chloride Carbon Dioxide Anion Gap BUN Creatinine Estim Creat Clear Calc Estimated GFR Glucose POC Capillary Glucose 87 Calcium Cotinine Negative Blood Type B Positive Antibody Screen Negative 08/10/23 08/10/23 08/11/23 14:45 20:06 04:52 WBC 10.9 H RBC 3.12 L Hgb 9.9 L Hct 30.6 L MCV 98.1 MCH 31.7 MCHC 32.4 RDW 13.1 Plt Count 131 L MPV 9.6 Immature Gran % (Auto) 0.6 H Neut % (Auto) 71.0 Lymph % (Auto) 15.7 L [place] % (Auto) 12.5 H Eos % (Auto) 0.0 Baso % (Auto) 0.2 Lymph # (Auto) 1.71 [place] # (Auto) 1.4 H Eos # (Auto) 0.0 Baso # (Auto) 0.0 Abs Immat Gran (auto) 0.07 H Absolute Neuts (auto) 7.7 H Absolute Nucleated RBC 0.000 Nucleated RBC % 0.0 Sodium 138 Potassium 3.9 Chloride 107 Carbon Dioxide 25 Anion Gap 6 BUN 15 Creatinine 0.70 Estim Creat Clear Calc 54 Estimated GFR > 60 Glucose 119 H POC Capillary Glucose 102 165 H Calcium 8.6 Cotinine Blood Type Antibody Screen Post-procedural complaints: none Patient Feedback: Patient satisfied with anesthetic care.
[2023-08-11] MEDS: ASPIRIN 81 MG ENTERIC TABLET PO (09:52)
[2023-08-11] MEDS: valACYclovir HCL 500 MG TABLET PO (09:52)
[2023-08-11] MEDS: OLMESARTAN MEDOXOMIL 20 MG TABLET 40 MG PO (09:52)
[2023-08-11] MEDS: metFORMIN HCL 500 MG TABLET PO (09:52)
[2023-08-11] MEDS: FAMOTIDINE 20 MG TABLET PO (09:52)
[2023-08-11] MEDS: SITagliptin PHOSPHATE 50 MG TABLET PO (09:52)
[2023-08-11] MEDS: polyethylene glycoL 3350 17 GM POWD.PACK PO (09:53)
[2023-08-11] MEDS: amLODIPine BESYLATE 5 MG TABLET PO (09:53)
[2023-08-11] MEDS: FUROSEMIDE 20 MG TABLET PO (09:53)
[2023-08-11] MEDS: SENNA/DOCUSATE SODIUM TABLET 2 TAB PO (09:53)
[2023-08-11 09:55] VITALS: PULSE 78
[2023-08-11] MEDS: carvediloL 25 MG TABLET PO (09:55)
--- NOTE | 2023-08-11 11:10 | PM.IMPN ---
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 - ambulate with assistance and up to chair - cold therapy - use IS - neurovasc checks - see order for intervals - SCDs and TEDs - resume diet - pain management - antiemetic PRN - monitor labs in AM - CBC and BMP - bowel regimen: docusate/senna, polyethylene glycol - maintenance fluids: NS 125 mL/hr x 8 hours - prophylactic atb - Ancef - PT/OT (2) DM type 2 (diabetes mellitus, type 2): ?Qualifiers: ?Diabetes mellitus complication status:?without complication??Diabetes mellitus mcfp insulin use:?without mcfp use? Qualified Code(s):?E11.9 - Type 2 diabetes mellitus without complications ?Code(s): E11.9 - Type 2 diabetes mellitus without complications ?Status:?Acute ?Assessment and Plan: - hypoglycemia protocol - POC blood glucose ACHS - home medication: Janumet 50-500 - correct regimen ordered:? low dose TIDWM and HS - A1C 5.6% on 06/20/2023 (3) Benign essential hypertension: ?Code(s): I10 - Essential (primary) hypertension ?Status:?Acute ?Assessment and Plan: - chronic, currently 178/87 - continue home medications: olmesartan, amlodipine, carvedilol - monitor (4) Hypothyroidism: ?Qualifiers: ?Hypothyroidism type:?unspecified? Qualified Code(s):?E03.9 - Hypothyroidism, unspecified ?Code(s): E03.9 - Hypothyroidism, unspecified ?Status:?Acute ?Assessment and Plan: - TSH 3.860 and free T4 1.21 on 06/20/2023 - continue home medication:? Synthroid 137 mcg daily Subjective Date/time seen: 08/11/23 11:10 Interval history: I and examined patient today, patient still has some left knee pain, tolerable, patient denies chest pain shortness breast abdomen pain, nausea vomiting diarrhea dysuria. Patient is afebrile, blood pressure stable Exam Narrative: GENERAL: Pleasant, in no acute distress. Well-nourished. - EYES: EOMI. Anicteric. - HENT: Moist mucous membranes. - LUNGS: Clear to auscultation bilaterally, no wheezing, rhonchi, or rales. - CARDIOVASCULAR: Regular rate and rhythm. No murmur. No JVD. - ABDOMEN: Soft, non-tender and non-distended. No palpable masses. - EXTREMITIES: No edema. Peripheral pulses 2+. Non-tender. left knee tenderness, surgical wound is dry and clean - NEUROLOGIC: No focal neurological deficits. CN II-XII grossly intact. - PSYCHIATRIC: Awake, Alert and oriented x 3. Appropriate mood and affect. - SKIN: No rashes or lesions. Warm. - LYMPH: No cervical lymphadenopathy. Objective Data Vital Signs Vital Signs: Vital Signs - 24 hr 08/10/23 12:00 08/10/23 14:41 08/10/23 14:55 Temperature 97.9 F 97.8 F Pulse Rate 78 86 79 Respiratory Rate 16 17 13 Blood Pressure 184/82 H 184/86 H 193/86 H Pulse Oximetry 100 100 100 Oxygen Delivery Room Air Simple Face Mask Simple Face Mask Oxygen Flow Rate 6 8 08/10/23 15:10 08/10/23 15:25 08/10/23 15:40 Temperature Pul
[2023-08-11] MEDS: traMADol HCL (*CRX) 50 MG TABLET PO (12:19)
== END 2023-08-11 15:09 | disposition home or self-care (01) ==
LOC: ANHSURGERY 14:42 → ANH3MED 16:01
PROVIDERS: Physician Assistant Surgical; PCP Internal Medicine; Visit Provider Orthopaedic Surgery
PROC: (CPT 27447; principal; 2023-08-10 12:30)
DX: M17.12 Unilateral primary osteoarthritis, left knee (principal); G89.18 Other acute postprocedural pain; E11.9 Type 2 diabetes mellitus without complications; I10 Essential (primary) hypertension; E03.9 Hypothyroidism, unspecified; E78.2 Mixed hyperlipidemia; K21.9 Gastro-esophageal reflux disease without esophagitis; Z79.84 Long term (current) use of oral hypoglycemic drugs; Z79.899 Other long term (current) drug therapy
CPT/HCPCS: 27447; 64447; 36415; 73560; 80048; 80307; 82948; 85025; 86850; 86900; 86901; 87641; 97110; 97161; 97165; A9270; C1713; C1776; J0171; J0690; J1100; J1885; J2250; J2270; J2405; J2704; J2795; J3010; J7030; J7120; J7512

== ENCOUNTER 2023-10-02 13:11 | Outpatient (CLI) | payer MEDICARE, SELFPAY ==
--- NOTE | ~2023-10-02 | XR_ITS ---
EXAM: XR knee LT 3V DATE: 10/02/2023 13:36 HISTORY: Z47.1 - Aftercare following joint replacement surgery . COMPARISON: 03/01/2023, images only. FINDINGS: Decreased mineralization. No fracture or dislocation. No lytic or blastic lesion. Uncompli cated appearing left knee arthroplasty hardware. No erosion or periosteal change. Small knee joint ef fusion. Soft tissues within normal limits. IMPRESSION: No acute osseous finding in the left knee. No radiographic evidence of hardware related c omplication. Reviewed, dictated and finalized at location K. IMPRESSION: No acute osseous finding in the left knee. No radiographic evidence of hardware related complication.
== END 2023-10-02 13:12 | disposition home or self-care (01) ==
PROVIDERS: PCP Internal Medicine; Visit Provider Orthopaedic Surgery
DX: Z47.1 Aftercare following joint replacement surgery (principal)
CPT/HCPCS: 73562

== ENCOUNTER 2023-11-24 13:45 | Outpatient (CLI) | payer MEDICARE, SELFPAY ==
--- NOTE | ~2023-11-24 | MM_ITS ---
EXAMINATION: MM screening [facility] BI w lilian HISTORY: Screening TECHNIQUE: Craniocaudal and mediolateral oblique 3-D tomosynthesis images were obtained and synthetic 2-D images were generated. CAD analysis was submitted and interpreted. COMPARISON: Comparison to multiple prior studies sequentially, with oldest reviewed study dated 07/18. BREAST PARENCHYMAL COMPOSITION: Not dense: There are scattered areas of fibroglandular density. FINDINGS: There is no evidence of suspicious mass, calcification, or architectural distortion to sugg est malignancy in either breast. There has been no suspicious interval change. IMPRESSION: 1. No mammographic evidence of malignancy. 2. Recommend routine screening mammography in one year. BI-RADS Category 1: Negative Reviewed, dictated and finalized at location B.
== END 2023-11-24 13:46 ==
PROVIDERS: PCP Internal Medicine; Visit Provider Internal Medicine
DX: Z12.31 Encounter for screening mammogram for malignant neoplasm of breast (principal)
CPT/HCPCS: 77063; 77067

== ENCOUNTER 2024-02-21 13:51 | Outpatient (CLI) | payer MEDICARE, SELFPAY | END 2024-02-21 13:52 | disposition home or self-care (01) | LOC: ANHAUDIO 13:52 | PROVIDERS: PCP Internal Medicine; Visit Provider Internal Medicine | DX: H90.2 Conductive hearing loss, unspecified (principal) | CPT/HCPCS: 92557; 92567 ==

== ENCOUNTER 2024-08-05 13:08 | Outpatient (CLI) | payer MEDICARE, SELFPAY ==
--- NOTE | ~2024-08-05 | XR_ITS ---
XR knee LT 3V Ordering provider: Brendan Zamora MD History: . Z96.652 - Presence of left artificial knee joint . Comparison: None. FINDINGS: BONES: No acute fracture or dislocation. JOINT SPACES: Total knee arthroplasty. SOFT TISSUES: Normal. IMPRESSION: No acute osseous abnormality left knee. Right knee arthroplasty. Reviewed, dictated and finalized at location A.
--- OUTSIDE RECORDS SUMMARY | 2024-08-05 13:42 | XMS_ITS | Clinical Summary ---
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 Role Phone Alexander Christian MD Primary Care Provider + Allergies Active Allergy Reactions Criticality Noted Date Comments Clarithromycin Rash High 01/01/2020 Iodine Itching High 01/01/2020 Levothyroxine Rash High 01/01/2020 Medications amLODIPine (NORVASC) 10 mg tablet 10/25/2019 Active carvediloL (COREG) 12.5 mg tablet 12/02/2019 Active cephALEXin (KEFLEX) 500 mg capsule TK 1 C PO Q 8 H FOR 7 DAYS 12/21/2019 Active Prevalite 4 gram Powder 11/11/2019 Active famotidine (PEPCID) 40 mg tablet 12/23/2019 Active potassium chloride (K-TAB) 20 mEq Extended Release tablet 12/03/2019 Acti ve rosuvastatin (CRESTOR) 5 mg tablet 10/17/2019 Active Janumet 50-500 mg tablet 12/14/2019 Active olmesartan (BENICAR) 40 mg tablet 12/14/2019 Active Synthroid 100 mcg tablet 12/30/2019 Active acyclovir (ZOVIRAX) 200 mg capsule 11/08/2019 Active Active Problems Problem Noted Date Diagnosed Date Malignant melanoma of left lower extremity 04/01 Family History Medical History Relation Name Comments Cancer Brother Diabetes Brother Healthy Daughter 1 Healthy Daughter 2 Heart Disease Father Cancer Mother Cancer Sister Heart Disease Sister Healthy Son 1 Diabetes Son 2 Stroke Son 2 Healthy Son 3 Relation Name Status Comments Brother Alive Daughter 1 Alive Daughter 2 Alive Father Mother Sister Son 1 Alive Son 2 Alive Son 3 Alive Social History Tobacco Use Types Packs/Day Years Used Date Smoking Tobacco: Never Smokeless Tobacco: Never Alcohol Use Standard Drinks/Week Comments Never 0 (1 standard drink = 0.6 oz pur e alcohol) Comments No Sex and Gender Information Value Date Recorded Sex Assigned at Not on file Legal Sex Female 1:45 PM CDT Gender Identity Not on file Sexual Orientation Not on file Last Filed Vital Signs Vital Sign Reading Time Taken Comments Blood Pressure 172/88 09/29/2020 3:29 PM CDT first bp R arm 176/91 just came in room Pulse 91 09/29/2020 3:29 PM CDT Temperature 36.7 C (98 F) 09/29/2020 3:29 PM CDT Respiratory Rate - - Oxygen Saturation 97% 09/29/2020 3:2 9 PM CDT Inhaled Oxygen Concentration - - Weight 83.4 kg (183 lb 14.4 oz) 09/29/2020 3:29 PM CDT Height 163.8 cm (5' 4.5 ) 09/29/2020 3: 29 PM CDT Body Mass Index 31.08 09/29/2020 3:29 PM CDT Plan of Treatment Health Maintenance Due Date Last Done Comments DTAP/TDAP/TD VACCINES (1 - Tdap) 06/22/1962 PNEUMOCOCCAL VACCINE 50+ YEARS (1 of 1 - PCV) 06/22/18 94 ZOSTER VACCINE (1 of 2) 06/22/1993 OSTEOPOROSIS SCREENING 06/22/2008 RSV VACCINE (60+ or ) (1 - 1-dose 75+ series) 06/22/2018 INFLUENZA VACCINE (#1) 2023 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
== END 2024-08-05 13:09 | disposition home or self-care (01) ==
PROVIDERS: PCP Internal Medicine; Visit Provider Orthopaedic Surgery
DX: Z47.1 Aftercare following joint replacement surgery (principal); Z96.652 Presence of left artificial knee joint
CPT/HCPCS: 73562

== ENCOUNTER 2025-02-06 12:01 | Outpatient (CLI) | payer MEDICARE, SELFPAY ==
--- NOTE | ~2025-02-06 | MM_ITS ---
EXAMINATION: MM screening [facility] BI w lilian HISTORY: Screening TECHNIQUE: Craniocaudal and mediolateral oblique 3-D tomosynthesis images were obtained and synthetic 2-D images were generated. CAD analysis was submitted and interpreted. COMPARISON: Comparison to multiple prior studies sequentially, with oldest reviewed study dated 08/23/2018. BREAST PARENCHYMAL COMPOSITION: There are scattered areas of fibroglandular density. FINDINGS: There is no evidence of suspicious mass, calcification, or architectural distortion to suggest malignancy in either breast. Scattered benign-appearing calcifications are present. IMPRESSION: 1. No mammographic evidence of malignancy. 2. Recommend routine screening mammography in one year. BI-RADS Category 2: Benign finding(s). Reviewed, dictated and finalized at location B. 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
== END 2025-02-06 12:02 | disposition home or self-care (01) ==
LOC: MICIMG 12:02
PROVIDERS: PCP Internal Medicine; Visit Provider Internal Medicine
DX: Z12.31 Encounter for screening mammogram for malignant neoplasm of breast (principal)
CPT/HCPCS: 77063; 77067